=== PATIENT | female | born 1930 | race Caucasian/White ===

== ENCOUNTER 2016-09-29 14:00 | Inpatient (IN) ==
--- NOTE | 2016-09-29 15:46 | EKG Report ---
Stationary ECG Study [facility] Test Date: 09/29/2016 3:46:05 PM Pat Name: BONNIE VILLAGRAN Department: Room: Gender: F Concrete Technician: : [id number] Requested by: David Ladd Order Number: [id number] Reading MD: JUDITH ZACARIAS Intervals Curtis Rate: 63 P: 30 ND: 208 QRS: -28 QRSD: 113 T: 6 QT: 413 QTc: 420 Interpretive Statements SINUS RHYTHM WITH VENTRICULAR PREMATURE COMPLEX BORDERLINE LEFT AXIS DEVIATION MODERATE INTRAVENTRICULAR CONDUCTION DELAY Electronically Signed On 10-01-16 21:38:09 CDT by JUDITH ZACARIAS [email or web address]
--- NOTE | 2016-09-29 15:52 | Ultrasound Report ---
Referring Physician: David Ladd Exam: US aorta Date: September 29, 2016 Reason: Back pain, syncope Comparison: None Technique: Grayscale and color flow images of the abdominal aorta were obtained. Ultrasound images were captured and stored. Findings: The abdominal aorta measures as follows: Proximal 1.6 x 1.2 cm, mid 1.4 x 1.1 cm and distal 1.7 x 1.3 cm. The right common iliac artery measures 1.2 x 0.8 cm, and the left common iliac artery measures 1.2 x 1.1 cm. There is scattered atherosclerotic change at the abdominal aorta and iliac arteries. Impression: The abdominal aorta is slightly ectatic but not aneurysmal. It measures up to 1.7 cm in diameter. PROCEDURE INTERPRETED AT [facility] DEPARTMENT OF RADIOLOGY Final Report Signed by: Dr. Jossue Nielsen
--- NOTE | 2016-09-29 15:58 | Emergency Department Note ---
IJhonny Brooke, am scribing for, and in the presence of, David Ladd Jr., MD 14:45. IJulee Marvin Jr., MD, personally performed the services described in this documentation, ascribed by Emerita Barry in my presence, and it is both accurate and complete [id number] . Arrival - Arrival ED Nursing Triage Note: PT REMEMBERS GETTING OUT OF SHOWER AND ATTEMPTING TO GET DRESSED AND GOT WEAK, PT THINKS SHE PASSED OUT, PT ONLY COMPLAINS OF NECK PAIN, TENDER OVER CSPINE, PT WAS NOT IMMOBILIZED UPON ARRIVAL, C-COLLAR PLACED ON PT UPON ASSESSMENT, MS INTACT BEFORE AND AFTER PLACEMENT Mode of Arrival: Stretcher Limitations: No Limitations Source: Patient, EMS, Old Records Reviewed (Previous records ordered), RN Notes Reviewed, Bystander (Friend) <David Ladd Jr. - Last Filed: 09/29/16 15:55> <Bradley Cooper - Last Filed: 09/29/16 17:36> - Arrival Chief Complaint: Syncope Time Seen by Provider: 09/29/16 14:37 - History of Present Illness HPI Narrative: Patient is a 86 year old female who presents to the ED following a syncopal episode that happened prior to arrival. Patient says she had just gotten out of the shower and was getting dressed when she passed out. Patient wears one of the medical call buttons and Friend states "when Patient didn't answer them, they called her." Friend says when she arrived at Patient's house, Patient was in the bathroom floor laying on her stomach with her head turned to the right. Patient is currently complaining of left ankle pain and neck pain but states the neck pain is chronic. She says she don't think she hit her head when she passed out. She has no other complaints. Patient has PMHx of CHF, chronic back pain, and has had four MIs. Her Executive Staff Assistant is Dr. Wilkinson and her Primary Care Provider is Dr. Celaya. (Emerita Barry) Patient is a 86 year old female who presents to the ED following a syncopal episode that happened prior to arrival. Patient says she had just gotten out of the shower and was getting dressed when she passed out. Patient wears one of the medical call buttons and Friend states "when Patient didn't answer them, they called her." Friend says when she arrived at Patient's house, Patient was in the bathroom floor laying on her stomach with her head turned to the right. Patient is currently complaining of left ankle pain and neck pain but states the neck pain is chronic. She says she don't think she hit her head when she passed out. She has no other complaints. Patient has PMHx of CHF, chronic back pain, and has had four MIs. Her Executive Staff Assistant is Dr. Wilkinson and her Primary Care Provider is Dr. Celaya. (David Ladd Jr.) Allergies/Adverse Reactions: Allergies Allergy/AdvReac Type Severity Reaction Status Date / Time SEE LIST Allergy RASH Uncoded 09/29/16 14:26 Home Medications: Home Medications Medication Instructions Recorded Confirmed Type Aspirin EC Tab 81 mg PO DAILY 09/29/16 09/29/16 History Biotin 1 mg PO DAILY 09/29/16 09/29/16 History Carvedilol [Carvedilol] 3.125 mg PO BID 09/29/16 09/29/16 History Cyanocobalamin (Vitamin B-12) 1,000 mcg PO DAILY 09/29/16 09/29/16 History [Vitamin B-12] Furosemide [Furosemide] 40 mg PO DAILY 09/29/16 09/29/16 History Gabapentin [Gabapentin] 100 mg PO BID 09/29/16 09/29/16 History Isosorbide Dinitrate [Isosorbide 10 mg PO BID 09/29/16 09/29/16 History Dinitrate] Levothyroxine Sodium 75 mcg PO DAILY 09/29/16 09/29/16 History [Levothyroxine Sodium] Nitroglycerin Sl Tab [Nitrostat] 0.4 mg SL Q5M PRN 09/29/16 09/29/16 History [place] 3 Acid Ethyl Esters [Lovaza] 2 gm PO BID 09/29/16 09/29/16 History Omeprazole [Omeprazole] 20 mg PO BID 09/29/16 09/29/16 History Potassium Chloride [Potassium 20 meq PO TID 09/29/16 09/29/16 History Chloride] Propylene Glycol/Peg 400 [Systane 1 drop BOTH EYES DAILY 09/29/16 09/29/16 History Ultra] Saxagliptin HCl [Onglyza] 5 mg PO DAILY 09/29/16 09/29/16 History Travoprost 0.004% Oph Soln 1 drop BOTH EYES DAILY 09/29/16 09/29/16 History [Travatan Z] Review of System - Review of System 12 point system: reviewed and no additional remarkable complaints except as stated - Review of System Constitutional: Absent: fever Respiratory: Absent: respiratory distress Cardiovascular: Present: syncope Musculoskeletal: Present: neck pain (chronic), other (left ankle pain) Skin: Absent: rash <David Ladd Jr. - Last Filed: 09/29/16 15:55> Medical,Surgical,& Family Hx - Medical History Cardio: History of: CHF, [place] (X 5), Cardiovascular Problems Musculoskeletal: History of: Back/Neck Problems (CHRONIC LOWER BACK PAIN) - Surgical History Cardiac Surgeries: Sugical HX of: Cardiac Catheterization (ONE STENT) - Family History Family History: Denies;: Family Anesthesia Reaction - Social History Smoking Status: Unknown if ever smoked <David Ladd Jr. - Last Filed: 09/29/16 15:55> Exam <David Ladd Jr. - Last Filed: 09/29/16 15:55> <Bradley Cooper - Last Filed: 09/29/16 17:36> Physical Examination: General: Well-developed well-nourished, no apparent distress. Head: Normocephalic, atraumatic. Eyes: PERRLA, EOMI. Nose: No obvious acute deformities or discharge. Mouth: No obvious acute injury. Neck: Full range of motion without obvious pain. No midline tender to palpation. Patient says she has chronic neck pain and is not change. I removed the c-collar. Patient is not midline tender to palpation Lymphatic: no significant lymphadenopathy noted. Lungs: Clear to auscultation bilaterally, normal and equal air movement bilaterally, no obvious rales or wheezing. Heart: regular rate and rhythm, no obvious mummers. Abdomen: Soft nontender, nondistended, normal active bowel sounds. Skin: No obivous acute lesions noted Musculoskeletal: Left ankle is swollen but not bruised. Patient says it hurts to move it. She says she has had a previous fracture and it is always swollen but may be a little larger. Sensation normal and foot, Refill normal, Neurological: No focal findings, cranial nerves II through XII grossly normal. Psychiatric: Appropriate mood.. : Deferred (David Ladd Jr.) Vital Signs: Vital Signs Temperature 97.1 F L 09/29/16 14:05 Pulse Rate 60 09/29/16 14:05 Respiratory Rate 16 09/29/16 14:05 Blood Pressure 139/68 09/29/16 14:05 O2 Sat by Pulse Oximetry 99 09/29/16 14:05 Course - Reevaluation(s) Time: 15:57 <David Ladd Jr. - Last Filed: 09/29/16 15:55> - Reevaluation(s) Time: 17:35 <Bradley Cooper - Last Filed: 09/29/16 17:36> Course Narrative: Differential diagnosis: Ankle sprain versus fracture, syncopal episode, ACS, head injury, arrhythmia (David Ladd Jr.) - Reevaluation(s) Reevaluation #1: Workup in progress. Patient turned over to Dr. Cooper for completion of workup and care. (David Ladd Jr.) Reevaluation #2: Because of patient's syncope is still unclear. She will need admission and observation for that, but she also has a left ankle fracture. I do not think this will require any surgery but she lives alone and is unable to get around by herself. She will probably need admission to rehab at some point. I discussed patient with the hospitalist service who will see her and admit. ( Bradley Cooper) Results <David Ladd Jr. - Last Filed: 09/29/16 15:55> - Labs CBC & BMP: 09/29/16 15:50 09/29/16 15:50 Lab Results: I have reviewed the patients labs <Bradley Cooper - Last Filed: 09/29/16 17:36> - Labs Labs: Laboratory Tests 09/29/16 09/29/16 09/29/16 15:26 15:50 15:50 D-Dimer, Quantitative 7.7 Total Bilirubin 0.50 AST 30 ALT 33 Alkaline Phosphatase 73 Troponin I < 0.015 Urine Leukocytes Negative (Bradley Cooper) - Impressions EKG shows a normal sinus rhythm at 63 with a borderline left axis deviation and a PVC. Ankle x-ray shows an oblique fracture of the left fibula, mildly displaced. There is also an avulsion fracture of the medial malleolus. Ultrasound of the aorta shows no evidence of aneurysm. CT of the head shows no acute intracranial abnormality. CT of the cervical spine shows no acute fracture. (Bradley Cooper) Disposition <David Ladd Jr. - Last Filed: 09/29/16 15:55> Case discussed with: patient, patient's family Time of Disposition: 17:32 <Bradley Cooper - Last Filed: 09/29/16 17:36> Clinical Impression: Syncope, Left fibular fracture, Fracture of medial malleolus, left, closed Disposition: Still a Patient Condition: Stable
[2016-09-29 16:06] LABS: Basophils % 0.3 % (0.0-0.8); Eosinophils # 0.2 10*3/uL (0.0-0.87); Hematocrit 38.7 VOL% (35.7-47.0); Hemoglobin 13.3 GM/DL (12.0-16.0); Immature Granulocytes % 1.1 %; Lymphocytes % 11.4 % (21.3-54.2); Mean Corpuscular HGB Conc 34.4 GM/DL (32-36); Mean Corpuscular Hemoglobin 29 PG (27-34); Mean Corpuscular Volume 83.6 FL (87-102); Mean Platelet Volume 11.1 FL (9.6-12.0); Monocytes # 0.7 10*3/uL (0.11-0.8); Monocytes % 7.4 % (1.7-12.7); Neutrophils # 7.1 10*3/uL (1.4-7.4); Neutrophils % 77.8 % (38.7-73.9); Platelet Count 85 T/CUMM (130-400); Red Blood Count 4.63 MC/CUMM (3.8-5.5); White Blood Count 9.1 T/CUMM (4-12)
[2016-09-29 16:26] LABS: Alanine Aminotransferase 33 U/L (13-56); Albumin 3.4 G/DL (3.4-5.0); Alkaline Phosphatase 73 U/L (45-117); Aspartate Amino Transferase 30 U/L (0-37); Blood Urea Nitrogen 15 MG/DL (7-18); Calcium 8.6 MG/DL (8.5-10.1); Glucose 190 MG/DL (74-106); Osmolality,Calculated 284.4 MOS/KG (273-304); Potassium 4.5 MMOL/L (3.5-5.1); Sodium 140 MMOL/L (136-145); Total Protein 6.8 G/DL (6.4-8.3); Troponin I Only < 0.015 NG/ML (0.00-0.045)
[2016-09-29 16:29] LABS: Platelet Estimate Decreased
--- NOTE | 2016-09-29 16:43 | CT Report ---
Exam: CT cervical spine without contrast Date: September 29, 2016 Comparison: CT cervical spine April 29, 2014 Reason: Trauma, cervical spine pain, syncopal episode, status post fall, initial encounter Technique: Axial images of the cervical spine were obtained without the use of contrast. Sagittal and coronal reformatted images were also acquired. Total DLP is 355.0 mGy*cm. Findings: The cervical vertebral bodies are normal in height, and sagittal alignment is within normal limits. There is moderate disc space narrowing, endplate degenerative change and anterior marginal spurring at C3-C4 through C7-T1. There is also mild disc space narrowing at C2-C3 and T1-T2. Moderate degenerative change is noted at the atlantoaxial joint. No acute cervical spine fracture is identified. At C2-C3, there is a mild diffuse posterior disc osteophyte complex and moderate right facet arthropathy. No spinal canal stenosis or neuroforaminal narrowing is seen. At C3-C4, there is a left paracentral disc protrusion and minimal bilateral facet arthropathy. No significant spinal canal stenosis or neuroforaminal narrowing is seen. At C4-C5, there is a mild diffuse posterior disc osteophyte complex, mild right facet arthropathy and uncovertebral hypertrophy. No significant spinal canal stenosis is seen, but there is moderate left neuroforaminal narrowing and minimal right neuroforaminal narrowing. At C5-C6, there is a diffuse posterior disc osteophyte complex, uncovertebral hypertrophy and moderate right facet arthropathy. No spinal canal stenosis is seen, but there is minimal left neuroforaminal narrowing and severe right neuroforaminal narrowing. At C6-C7, there is a mild diffuse posterior disc osteophyte complex and uncovertebral hypertrophy. No spinal canal stenosis is seen, but there is mild bilateral neuroforaminal narrowing. At C7-T1, no neuroforaminal narrowing or spinal canal stenosis is identified. The lung apices are clear. No abnormal prevertebral soft tissue swelling is seen. Scattered calcified plaque is noted at the carotid arteries. There is also mild fluid within the right mastoid air cells. Impression: 1. No acute fracture is identified at the cervical spine. 2. Multilevel degenerative change at the cervical spine as described above. PROCEDURE INTERPRETED AT [facility] DEPARTMENT OF RADIOLOGY Final Report Signed by: Dr. Jossue Nielsen
--- NOTE | 2016-09-29 16:46 | CT Report ---
Referring physician: Bradley Cooper Exam: CT brain without contrast Date: September 29, 2016 Comparison: None Reason: Syncopal episode, status post fall The patient is an Emergency Department patient on September 29, 2016. Technique: Axial images of the head were obtained without the use of contrast. Total DLP was 1053.4 mGy*cm. Findings: There is mild to moderate generalized cerebral atrophy/volume loss and probable chronic microvascular ischemic change. No hydrocephalus or midline shift is present. There is no evidence of recent intracranial hemorrhage, abnormal mass effect or an acute infarction. No acute osseous process is seen. There is mild fluid within the right mastoid air cells. The left mastoid air cells are clear. Mild mucosal thickening is seen within the right sphenoid sinus. Prominent calcified plaque is noted at the intracranial internal carotid arteries. Impression: 1. No acute intracranial process is identified. 2. Mild to moderate generalized cerebral atrophy/volume loss and probable chronic macrovascular ischemic change. 3. Persistent mild fluid within the right mastoid air cells and mild right sphenoid sinus disease. The CT exam was performed using one or more of the following dose reduction techniques: Automated exposure control and adjustment of the mA and/or kV according to patient size. PROCEDURE INTERPRETED AT [facility] DEPARTMENT OF RADIOLOGY Final Report Signed by: Dr. Jossue Nielsen
--- NOTE | 2016-09-29 16:49 | XRay Report ---
Referring Physician: David Ladd Exam: XR ankle 3V LT Date: September 29, 2016 at 4:19 PM Reason: Left ankle trauma, left ankle pain, initial encounter Comparison: None Findings: There is a mildly displaced, oblique fracture of the distal left fibula. There is also a small avulsion type fracture at the medial malleolus and slight widening of the medial aspect of the tibiotalar joint. No additional acute fractures are identified, but note is made of mild calcaneal spurring. There is also prominent soft tissue swelling at the left ankle. Impression: 1. Mildly displaced, oblique fracture of the distal left fibula. 2. Small avulsion type fracture at the medial malleolus and slight widening of the medial aspect of the tibiotalar joint. 3. Prominent soft tissue swelling at the left ankle. PROCEDURE INTERPRETED AT [facility] DEPARTMENT OF RADIOLOGY Final Report Signed by: Dr. Jossue Nielsen
[2016-09-29 16:50] LABS: Apearance,Urine CLEAR (Clear); Bilirubin,Urine Negative (Negative); Blood, Urine Negative (Negative); Glucose,Urine (UA) Negative (Negative); Ketones,Urine Negative (Negative); Nitrite,Urine Negative (Negative); Protein,Urine Negative; Urine Color Straw (Yellow); Urine Specific Gravity 1.004 (1.001-1.035); Urine Urobilinogen < 2.0 EU/DL (0.2-1.0)
--- NOTE | 2016-09-29 18:34 | Hospitalist History & Physical ---
Assessment and Plan (1) Left fibular fracture Status: Acute Assessment and plan: Admit to monitored bed. Bed rest. Consult ortho. Current Visit: Yes (2) Syncope Status: Acute Assessment and plan: Admit to monitored bed. Neuro checks. Vs monitoring. Bedrest. Consult cardiology for recs. Unable to evaluate orthostatic vitals d/t patient's fracture. Continue to monitor. IVF hydration. Current Visit: Yes (3) Diabetes Status: Acute Assessment and plan: Accuchecks hosseins. SSI. Diabetic diet. Hemoglobin A1c in am. Current Visit: Yes (4) History of myocardial infarction Status: Chronic Current Visit: Yes History of Present Illness Chief complaint: syncope History of present illness: Ms. Soto is a 86 year old white female with a history of htn, dm, chf, mi with stents, and hypothyroidism that presented to the ED via EMS after having a syncopal episode at home earlier this morning. The patient states that she felt fine but after getting out of the shower and drying off, she felt dizzy at which point she fell. She states losing consciousness briefly and activating her life alert bracelet once she came to. EMS was called and when the completion manager on the scene arrived, she was nauseated, vomited and experienced an episode of diarrhea. On arrival to ED patient was found to have fractured her left ankle. The patient denies any chest pain, shortness of breath, vision loss, tinnutits or any other symptoms at this time. Patient will be admitted for further eval. Cardiology and ortho have been consulted to assist with patient's care. Home Medications Medication Instructions Recorded Confirmed Type Aspirin EC Tab 81 mg PO DAILY 09/29/16 09/29/16 History Biotin 1 mg PO DAILY 09/29/16 09/29/16 History Carvedilol [Carvedilol] 3.125 mg PO BID 09/29/16 09/29/16 History Cyanocobalamin (Vitamin B-12) 1,000 mcg PO DAILY 09/29/16 09/29/16 History [Vitamin B-12] Furosemide [Furosemide] 40 mg PO DAILY 09/29/16 09/29/16 History Gabapentin [Gabapentin] 100 mg PO BID 09/29/16 09/29/16 History Isosorbide Dinitrate [Isosorbide 10 mg PO BID 09/29/16 09/29/16 History Dinitrate] Levothyroxine Sodium 75 mcg PO DAILY 09/29/16 09/29/16 History [Levothyroxine Sodium] Nitroglycerin Sl Tab [Nitrostat] 0.4 mg SL Q5M PRN 09/29/16 09/29/16 History [place] 3 Acid Ethyl Esters [Lovaza] 2 gm PO BID 09/29/16 09/29/16 History Omeprazole [Omeprazole] 20 mg PO BID 09/29/16 09/29/16 History Potassium Chloride [Potassium 20 meq PO TID 09/29/16 09/29/16 History Chloride] Propylene Glycol/Peg 400 [Systane 1 drop BOTH EYES DAILY 09/29/16 09/29/16 History Ultra] Saxagliptin HCl [Onglyza] 5 mg PO DAILY 09/29/16 09/29/16 History Travoprost 0.004% Oph Soln 1 drop BOTH EYES DAILY 09/29/16 09/29/16 History [Travatan Z] Allergies Allergy/AdvReac Type Severity Reaction Status Date / Time SEE LIST Allergy RASH Uncoded 09/29/16 14:26 Medical,Surgical,& Family Hx - Medical History Cardio: History of: CHF, [place] (X 5), Cardiovascular Problems Musculoskeletal: History of: Back/Neck Problems (CHRONIC LOWER BACK PAIN) - Surgical History Cardiac Surgeries: Sugical HX of: Cardiac Catheterization (ONE STENT) - Family History Family History: Denies;: Family Anesthesia Reaction - Social History Smoking Status: Unknown if ever smoked Lives With:: Alone Functional capacity: independent ambulation - Constitutional Constitutional: Absent: fatigue, fever(s) - EENT Eyes: Present: loss of vision, requires corrective lense Ears: Present: decreased hearing. Absent: ear discharge Nose, mouth and throat: Absent: headache(s), sore throat - Cardiovascular Cardiovascular: Present: edema. Absent: chest pain at rest, chest pain with activity - Respiratory Respiratory: Present: other (wears O2 at night). Absent: cough, dyspnea - Gastrointestinal Gastrointestinal: Present: diarrhea, nausea, vomiting. Absent: abdominal pain - Genitourinary Genitourinary: Absent: difficulty urinating, urinary incontinence - Musculoskeletal Musculoskeletal: Present: limited range of motion - Neurological Neurological: Absent: confusion, numbness - Psychiatric Psychiatric: Absent: anxiety, confusion - Endocrine Endocrine: Present: heat intolerance Exam - Constitutional Vitals: Period Temp Pulse Resp BP Sys/Guajardo Pulse Ox Last 24 Hr 97.1 F 60 16 139/68 99 General appearance: normal weight, over weight - Head Head exam: Present: normal inspection, normocephalic - Eye Eye exam: Present: EOMI. Absent: scleral icterus Pupils: Present: EDWARD. Absent: fixed - ENT ENT exam: Present: normal exam - Respiratory Respiratory exam: Present: clear to auscultation bilaterally. Absent: wheezes - Cardiovascular Cardiovascular exam: Present: regular rate and rhythm - GI/Abdominal GI/Abdominal exam: Present: normal bowel sounds, soft. Absent: tenderness - Extremities Exam Extremities exam: Present: normal capillary refill, full ROM, edema - Neurological Exam Neurological exam: Present: alert, oriented X3 - Psychiatric Psychiatric exam: Present: normal affect, normal mood - Skin Skin exam: Present: normal color, warm, dry Results - Labs CBC & BMP: 09/29/16 15:50 09/29/16 15:50 Lab Results: I have reviewed the past 24 hour labs
[2016-09-29] MEDS ORDERED: ONDANSETRON 4 MG/2 ML VIAL IV PRN (19:45)
[2016-09-29] MEDS ORDERED: GLUCAGON 1 MG VIAL IM PRN (19:45)
[2016-09-29] MEDS ORDERED: ZALEPLON 5 MG CAPSULE PO PRN (19:45)
[2016-09-29] MEDS ORDERED: DEXTROSE 50% 25 GM/50 ML VIAL IV PRN (19:45)
[2016-09-29] MEDS ORDERED: ACETAMINOPHEN 325 MG TABLET PO PRN (19:45)
[2016-09-29] MEDS: SODIUM CHLORIDE 0.9% 1,000 ML IV SCH (21:44)
[2016-09-29 22:37] LABS: Barbiturates Screen,Urine Negative (Negative); Benzodiazepines Screen,Urine Negative (Negative); Cannabinoid Screen,Urine Negative (Negative); Opiate Screen,Urine Negative (Negative); Phencyclidine Screen,Urine Negative (Negative)
[2016-09-30] MEDS: INSULIN LISPRO 100 UNIT/ML SUBCUT SCH ×4 (01:17→18:46)
[2016-09-30 05:17] LABS: Basophils % 0.2 % (0.0-0.8); Eosinophils # 0.1 10*3/uL (0.0-0.87); Hematocrit 37.1 VOL% (35.7-47.0); Hemoglobin 12.5 GM/DL (12.0-16.0); Immature Granulocytes % 0.7 %; Immature Granulocytes Absolute 0.08 #; Lymphocytes # 1.3 10*3/uL (1.4-4.0); Mean Corpuscular HGB Conc 33.7 GM/DL (32-36); Mean Corpuscular Hemoglobin 29 PG (27-34); Mean Corpuscular Volume 85.7 FL (87-102); Mean Platelet Volume 11.6 FL (9.6-12.0); Monocytes # 1.3 10*3/uL (0.11-0.8); Neutrophils % 74.1 % (38.7-73.9); Platelet Count 73 T/CUMM (130-400); Red Blood Count 4.33 MC/CUMM (3.8-5.5); White Blood Count 10.8 T/CUMM (4-12)
[2016-09-30 06:03] LABS: Calcium 8.4 MG/DL (8.5-10.1); Osmolality,Calculated 289.5 MOS/KG (273-304); Potassium 3.9 MMOL/L (3.5-5.1); Thyroid Stimulating Hormone 0.677 uIU/ml (0.358-3.74)
[2016-09-30 06:07] LABS: Microcytosis 1+; Platelet Estimate Decreased
--- NOTE | 2016-09-30 08:57 | Cardiology Consult Note ---
Assessment and Plan (1) Cardiomyopathy Status: Acute Assessment and plan: 1. 86-year-old WF with controlled hypertension, diabetes, untreated dyslipidemia (reported allergy to Lipitor?), Status post non-STEMI with severe cardiomyopathy in 2008 (3 vessel disease with angioplasty of ramus branch), with improved ischemic cardiomyopathy and EF 40% with inferoapical scarring April 2014 at myocardial scan, now status post ankle fracture needing surgical intervention with possible syncope 2. Possible syncope she does not recall the event, but she has no previous presyncope or syncope, and has been doing well clinically from a cardiac standpoint able to ambulate without difficulty. 3. Add Crestor 20 mg daily given her three-vessel disease with medical therapy 4. Add low-dose Toprol 25 mg daily to treat her cardiomyopathy and avoid hypotension 5. Baby aspirin daily 6. Very low-dose ARB with valsartan 40 mg daily 7. Echocardiogram to evaluate for structural heart disease/reevaluate ejection fraction prior to surgery 8. She is euvolemic on examination 9. Check flat and upright blood pressure heart rates 4 10. If her ejection fraction is not deteriorated and she has no new structural heart disease she should be low to intermediate risk for perioperative cardiovascular complications Current Visit: Yes (2) Pre-op evaluation Status: Acute Current Visit: Yes (3) Syncope Status: Acute Current Visit: Yes History of Present Illness - Consult Narrative History of present illness: Ms. Soto is a 86 year old female followed by Dr. rodriguez for mild ischemic cardiomyopathy who presented with left ankle fracture after waking up in her bathroom with ankle pain. She does not recall what happened. She has had occasional mild dizziness but nothing serious and no previous episodes of presyncope or syncope. She apparently needs surgical intervention, tentatively planned for tomorrow. I did a heart catheterization 2008 which she had non- STEMI in procedure on her ramus branch. She had three-vessel disease at that time but did not undergo surgery. She had severely reduced LV systolic function at that time but then improved to moderately reduced and most recently EF 40% April 2014 with inferoapical scar. She has not had any chest discomfort or shortness of breath. She is not describing palpitations or swelling. She is asymptomatic other than her significant ankle pain. CC: Jhonny Howard MD - Home Medications and Allergies Home Medications: Home Medications Medication Instructions Recorded Confirmed Type Aspirin EC Tab 81 mg PO DAILY 09/29/16 09/29/16 History Biotin 1 mg PO DAILY 09/29/16 09/29/16 History Carvedilol [Carvedilol] 3.125 mg PO BID 09/29/16 09/29/16 History Cyanocobalamin (Vitamin B-12) 1,000 mcg PO DAILY 09/29/16 09/29/16 History [Vitamin B-12] Furosemide [Furosemide] 40 mg PO DAILY 09/29/16 09/29/16 History Gabapentin [Gabapentin] 100 mg PO BID 09/29/16 09/29/16 History Isosorbide Dinitrate [Isosorbide 10 mg PO BID 09/29/16 09/29/16 History Dinitrate] Levothyroxine Sodium 75 mcg PO DAILY 09/29/16 09/29/16 History [Levothyroxine Sodium] Nitroglycerin Sl Tab [Nitrostat] 0.4 mg SL Q5M PRN 09/29/16 09/29/16 History [place] 3 Acid Ethyl Esters [Lovaza] 2 gm PO BID 09/29/16 09/29/16 History Omeprazole [Omeprazole] 20 mg PO BID 09/29/16 09/29/16 History Potassium Chloride [Potassium 20 meq PO TID 09/29/16 09/29/16 History Chloride] Propylene Glycol/Peg 400 [Systane 1 drop BOTH EYES DAILY 09/29/16 09/29/16 History Ultra] Saxagliptin HCl [Onglyza] 5 mg PO DAILY 09/29/16 09/29/16 History Travoprost 0.004% Oph Soln 1 drop BOTH EYES DAILY 09/29/16 09/29/16 History [Travatan Z] Allergies/Adverse Reactions: Allergies Allergy/AdvReac Type Severity Reaction Status Date / Time SEE LIST Allergy RASH Uncoded 09/29/16 14:26 Medical,Surgical,& Family Hx - Medical History Cardio: History of: CHF, [place] (X 5), Cardiovascular Problems Endocrine: History of: Diabetes Mellitus (NIDDM) Rheumatology: History of;: Rheumatoid Arthritis Musculoskeletal: History of: Back/Neck Problems (CHRONIC LOWER BACK PAIN) - Surgical History Cardiac Surgeries: Sugical HX of: Cardiac Catheterization (ONE STENT) Abdominal Surgeries: Patient denies: Abdominal Surgery Reproductive Surgeries: Patient denies;: Gynecologic Surgery - Family History Family History: Reports;: Family Heart Disease Denies;: Family Anesthesia Reaction - Social History Smoking Status: Unknown if ever smoked Physical Examination Vital Signs Temp Pulse Resp BP Pulse Ox 97.1 F L 60 16 139/68 99 09/29/16 14:05 09/29/16 14:05 09/29/16 14:05 09/29/16 14:05 09/29/16 14:05 General: Present: Appears Well, No Apparent Distress Neck: Present: Supple Neck, No JVD/HJR Cardiac: Present: Reg Rate and Rhythm. Absent: Systolic Murmur, Diastolic Murmur Lungs: Present: Normal Exam, Clear Ascult./Percussion Abdomen: Present: Soft. Absent: Tender Extremities: Present: No Edema Result/EKG - Labs CBC & BMP: 09/30/16 03:48 09/30/16 03:48 Labs: Laboratory Results - last 24 hr 09/29/16 09/30/16 09/30/16 21:59 03:48 03:48 WBC 10.8 RBC 4.33 Hgb 12.5 Hct 37.1 MCV 85.7 L MCH 29 MCHC 33.7 RDW 13.0 Plt Count 73 L MPV 11.6 Neut % (Auto) 74.1 H Lymph % (Auto) 12.0 L [place] % (Auto) 12.0 Eos % (Auto) 1.0 Baso % (Auto) 0.2 Neut # (Auto) 8.0 H Lymph # (Auto) 1.3 L [place] # (Auto) 1.3 H Eos # (Auto) 0.1 Baso # (Auto) 0.0 Immature Gran % 0.7 Nucleated RBC % 0.0 Immature Gran # 0.08 Nucleated RBCs # 0.00 Platelet Estimate Decreased Microcytosis 1+ Sodium 139 Potassium 3.9 Chloride 100 Carbon Dioxide 26 Anion Gap 16.9 H BUN 21 H Creatinine 1.30 H GFR Calculation 40 BUN/Creatinine Ratio 16.00 Glucose 282 H POC Glucose 153 H Hemoglobin A1c Calculated Osmolality 289.5 Calcium 8.4 L Triglycerides 210 H Cholesterol 231 H LDL Cholesterol 159.0 VLDL Cholesterol 42.0 HDL Cholesterol 33 L Heart Disease Risk Ratio 7.00 TSH 3rd Generation 0.677 09/30/16 09/30/16 03:48 08:05 WBC RBC Hgb Hct MCV MCH MCHC RDW Plt Count MPV Neut % (Auto) Lymph % (Auto) [place] % (Auto) Eos % (Auto) Baso % (Auto) Neut # (Auto) Lymph # (Auto) [place] # (Auto) Eos # (Auto) Baso # (Auto) Immature Gran % Nucleated RBC % Immature Gran # Nucleated RBCs # Platelet Estimate Microcytosis Sodium Potassium Chloride Carbon Dioxide Anion Gap BUN Creatinine GFR Calculation BUN/Creatinine Ratio Glucose POC Glucose 176 H Hemoglobin A1c 7.6 H Calculated Osmolality Calcium Triglycerides Cholesterol LDL Cholesterol VLDL Cholesterol HDL Cholesterol Heart Disease Risk Ratio TSH 3rd Generation
--- NOTE | 2016-09-30 09:21 | Orthopedic Consult Note ---
History of Present Illness Chief complaint: Left closed unstable bimalleolar ankle fracture History of present illness: Ms. Soto is a 86 year old female who sustained a syncopal episode yesterday. As a sequela she sustained a left bimalleolar ankle fracture. The patient has a history of a prior ankle fracture in the 1950s which was treated closed in a walking cast. She otherwise has not had significant problems with that ankle. She lives at home with her cats and is an independent ambulator. Ms. Soto' left lower extremity was examined. Skin is intact. She is mildly swollen. Skin, sensation, motors, and pulses are intact to her left lower extremity. She has a mild deformity. There is no tenting of the skin. Radiographs 3 views ankle show a spiral distal fibular fracture with a very small medial malleolus avulsion fracture. She has a widened mortise. Her CBC is pertinent for thrombocytopenia. Impression: Left closed bimalleolar ankle fracture Plan: I placed the patient in a short leg splint with stirrups. I have advised open reduction fixation of her fibula. We will plan on proceeding with this Friday. Risks and benefits were discussed. All questions are answered. I have also consulted physical therapy to start on gait training. Home Medications Medication Instructions Recorded Confirmed Type Aspirin EC Tab 81 mg PO DAILY 09/29/16 09/29/16 History Biotin 1 mg PO DAILY 09/29/16 09/29/16 History Carvedilol [Carvedilol] 3.125 mg PO BID 09/29/16 09/29/16 History Cyanocobalamin (Vitamin B-12) 1,000 mcg PO DAILY 09/29/16 09/29/16 History [Vitamin B-12] Furosemide [Furosemide] 40 mg PO DAILY 09/29/16 09/29/16 History Gabapentin [Gabapentin] 100 mg PO BID 09/29/16 09/29/16 History Isosorbide Dinitrate [Isosorbide 10 mg PO BID 09/29/16 09/29/16 History Dinitrate] Levothyroxine Sodium 75 mcg PO DAILY 09/29/16 09/29/16 History [Levothyroxine Sodium] Nitroglycerin Sl Tab [Nitrostat] 0.4 mg SL Q5M PRN 09/29/16 09/29/16 History [place] 3 Acid Ethyl Esters [Lovaza] 2 gm PO BID 09/29/16 09/29/16 History Omeprazole [Omeprazole] 20 mg PO BID 09/29/16 09/29/16 History Potassium Chloride [Potassium 20 meq PO TID 09/29/16 09/29/16 History Chloride] Propylene Glycol/Peg 400 [Systane 1 drop BOTH EYES DAILY 09/29/16 09/29/16 History Ultra] Saxagliptin HCl [Onglyza] 5 mg PO DAILY 09/29/16 09/29/16 History Travoprost 0.004% Oph Soln 1 drop BOTH EYES DAILY 09/29/16 09/29/16 History [Travatan Z] Allergies Allergy/AdvReac Type Severity Reaction Status Date / Time SEE LIST Allergy RASH Uncoded 09/29/16 14:26 12 point system: reviewed and no additional remarkable complaints except as stated Medical,Surgical,& Family Hx - Medical History Cardio: History of: CHF, [place] (X 5), Cardiovascular Problems Endocrine: History of: Diabetes Mellitus (NIDDM) Rheumatology: History of;: Rheumatoid Arthritis Musculoskeletal: History of: Back/Neck Problems (CHRONIC LOWER BACK PAIN) - Surgical History Cardiac Surgeries: Sugical HX of: Cardiac Catheterization (ONE STENT) Abdominal Surgeries: Patient denies: Abdominal Surgery Reproductive Surgeries: Patient denies;: Gynecologic Surgery - Family History Family History: Reports;: Family Heart Disease Denies;: Family Anesthesia Reaction - Social History Smoking Status: Unknown if ever smoked Exam - Constitutional Vitals: Period Temp Pulse Resp BP Sys/Guajardo Pulse Ox Last 24 Hr 97.1 F-98.0 F 58-90 16-20 115-139/56-68 94-99 Results - Labs CBC & BMP: 09/30/16 03:48 09/30/16 03:48 Assessment and Plan (1) Bimalleolar fracture of left ankle Status: Acute Current Visit: Yes Qualifiers: Encounter type: initial encounter Fracture type: closed Qualified Code(s) : S82.842A - Displaced bimalleolar fracture of left lower leg, initial encounter for closed fracture
--- NOTE | 2016-09-30 10:15 | Hospitalist Progress Note ---
Assessment and Plan (1) Syncope Status: Acute Assessment and plan: Moderate to this point is not showing malignant arrhythmias. Patient has sinus control occasional APCs noted. Cardiology recommendations appreciated please refer to note for details. Current Visit: Yes (2) Diabetes Status: Acute Assessment and plan: Point of care glucose measurements below 200. Intention is to maintain it below 150. Continue with a current treatment and will be n.p.o. after midnight she will need to give too much insulin in the morning Current Visit: Yes Qualifiers: Diabetes mellitus type: type 2 Diabetes mellitus complication status: with circulatory complication Diabetes mellitus complication detail: with other circulatory complications Diabetes mellitus terminal operator insulin use: without terminal operator use Qualified Code(s): E11.59 - Type 2 diabetes mellitus with other circulatory complications (3) Cardiomyopathy Status: Acute Assessment and plan: Cardiology is on case patient is asymptomatic at this point no acute decompensated CHF Current Visit: Yes (4) Bimalleolar fracture of left ankle Status: Acute Current Visit: Yes Qualifiers: Encounter type: initial encounter Fracture type: closed Qualified Code(s) : S82.842A - Displaced bimalleolar fracture of left lower leg, initial encounter for closed fracture Hospitalist: Subjective Interval history: She has been seen interviewed and examined chart has been reviewed. Reportedly she had a syncopal episode at home fell down and broke her left ankle. Patient is known to have coronary disease. Cardiology has already seen the patient and think she is stable on current medications. Orthopedics is planning to do open reduction internal fixation tomorrow. No acute complaints this morning Exam - Constitutional Vitals: Period Temp Pulse Resp BP Sys/Guajardo Pulse Ox Last 24 Hr 97.1 F-98.0 F 58-90 16-20 115-139/56-68 94-99 General appearance: over weight - Head Head exam: Present: normocephalic - Eye Pupils: Present: EDWARD - ENT ENT exam: Present: normal exam, normal oropharynx - Neck Neck exam: Present: normal inspection, other (No JVD no lymphadenopathy no thyromegaly midline trachea) - Respiratory Respiratory exam: Present: clear to auscultation bilaterally, other - Cardiovascular Cardiovascular exam: Present: regular rate and rhythm, other (Occasional ectopy. EKG shows occasional PVCs with aberrant conduction) - GI/Abdominal GI/Abdominal exam: Present: normal bowel sounds, soft - Extremities Exam Extremities exam: Present: full ROM - Back Exam Back exam: Present: normal inspection - Neurological Exam Neurological exam: Present: alert, oriented X3, CN II-XII intact - Psychiatric Psychiatric exam: Present: normal affect, normal mood - Skin Skin exam: Present: normal color, warm, dry Results - Labs CBC & BMP: 09/30/16 03:48 09/30/16 03:48 Lab Results: I have reviewed the past 24 hour labs
--- NOTE | 2016-09-30 10:26 | Hospitalist Progress Note ---
Assessment and Plan (1) Syncope Status: Acute Assessment and plan: Moderate to this point is not showing malignant arrhythmias. Patient has sinus control occasional APCs noted. Cardiology recommendations appreciated please refer to note for details. Current Visit: Yes (2) Diabetes Status: Acute Assessment and plan: Point of care glucose measurements below 200. Intention is to maintain it below 150. Continue with a current treatment and will be n.p.o. after midnight she will need to give too much insulin in the morning Current Visit: Yes Qualifiers: Diabetes mellitus type: type 2 Diabetes mellitus complication status: with circulatory complication Diabetes mellitus complication detail: with other circulatory complications Diabetes mellitus terminologist insulin use: without terminologist use Qualified Code(s): E11.59 - Type 2 diabetes mellitus with other circulatory complications (3) Cardiomyopathy Status: Acute Assessment and plan: Cardiology is on case patient is asymptomatic at this point no acute decompensated CHF Current Visit: Yes (4) Bimalleolar fracture of left ankle Status: Acute Current Visit: Yes Qualifiers: Encounter type: initial encounter Fracture type: closed Qualified Code(s) : S82.842A - Displaced bimalleolar fracture of left lower leg, initial encounter for closed fracture Hospitalist: Subjective Interval history: Patient has been seen interviewed and examined and #to see him this morning after being admitted yesterday with symptoms and signs of acute cerebrovascular accident suggesting to be in the left middle cerebral artery watershed. And now has paresis of the right side and able to talk with a tendency to gaze to the right. 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 I am ordering a CTA of both head and neck. He does have pacemaker but he is already going to MRI. Reportedly it was created with MRI that he can have the procedure despite having a pacemaker. Exam - Constitutional Vitals: Period Temp Pulse Resp BP Sys/Guajardo Pulse Ox Last 24 Hr 97.1 F-98.0 F 58-90 16-20 115-139/56-68 94-99 Results - Labs CBC & BMP: 09/30/16 03:48 09/30/16 03:48
[2016-09-30] MEDS: VALSARTAN 80 MG TABLET PO SCH (10:27)
[2016-09-30] MEDS: ROSUVASTATIN 20 MG TABLET PO SCH (10:27)
[2016-09-30] MEDS: METOPROLOL SUCCINATE XL 25 MG TABLET PO SCH (10:30)
[2016-09-30] MEDS: ASPIRIN CHEW 81 MG TABLET PO SCH (10:31)
[2016-09-30] MEDS: PANTOPRAZOLE 40 MG TABLET PO SCH (10:31)
--- NOTE | 2016-09-30 15:33 | ECHO Report ---
Catia Soto Exam Date: 09/30/2016 10:59 Referring Physician: Technologist: Brittany Denton RDCS Age: 86 Ht (in): 64 Wt (lb): 178 Gender: F Exam Location: [facility] Echo Indications: Left ankle fracture, Pre Op, Syncope and collapse, NIDDM, CAD with previous stents, Essential (primary) hypertension, Edema, unspecified, Ischemic cardiomyopathy BP: 117 / 56 HR: 85 Rhythm: Sinus Technical Quality: IMPRESSIONS Technically difficult study 1-2+ left atrial enlargement 1+ concentric LVH Normal LV systolic function with ejection fraction estimated 55% without obvious wall motion value Aortic sclerosis without stenosis 1+ TR with RV systolic pressure estimated be 24 mmHg plus RAP MEASUREMENTS (Male / Female) Normal Values 2D ECHO LV Diastolic Diameter PLAX 5.3 cm 4.2 - 5.9 / 3.9 - 5.3 cm LV Systolic Diameter PLAX 3.3 cm LV Fractional Shortening PLAX 36.9 % IVS Diastolic Thickness 1.1 cm 0.6 - 1.0 / 0.6 - 0.9 cm LVPW Diastolic Thickness 1.1 cm 0.6 - 1.0 / 0.6 - 0.9 cm RV Internal Dim ED PLAX 2.5 cm Aortic Root Diameter 3.1 cm LA Systolic Diameter LX 4.3 cm 3.0 - 4.0 / 2.7 - 3.8 cm DOPPLER TR Peak Velocity 243.0 cm/s TR Peak Gradient 23.6 mmHg FINDINGS Left Ventricle Normal left ventricular cavity size. Mild left ventricular hypertrophy. Left ventricular ejection fraction is estimated at 55 %. Right Ventricle Normal right ventricular size. Catheter/pacemaker wire visualized in the right ventricle. Right Atrium The right atrium is mildly enlarged. Catheter/pacemaker wire in the right atrial cavity. Left Atrium The left atrium is mildly enlarged. Mitral Valve Morphologically normal mitral valve. Trace to mild mitral valve regurgitation. Aortic Valve Aortic valve sclerosis without stenosis or regurgitation. Tricuspid Valve Morphologically normal tricuspid valve. Trace to mild tricuspid valve regurgitation. Tricuspid regurgitation velocities suggest a PAP of 34 mmHg. Pulmonic Valve Morphologically normal pulmonic valve. Mild pulmonary valve regurgitation. Pericardium Normal pericardium without effusion. Aorta Normal ascending aorta dimension. José Antonio Galvan (Electronically Signed) Final Date: 30 Sep 2016 15:31
[2016-09-30] MEDS: SODIUM CHLORIDE 0.9% 1,000 ML IV SCH (16:32)
[2016-10-01] MEDS: INSULIN LISPRO 100 UNIT/ML SUBCUT SCH ×5 (00:37→21:16)
[2016-10-01 05:55] LABS: Basophils % 0.1 % (0.0-0.8); Eosinophils # 0.3 10*3/uL (0.0-0.87); Eosinophils % 3.6 % (0.00-10.9); Hematocrit 35.7 VOL% (35.7-47.0); Hemoglobin 11.8 GM/DL (12.0-16.0); Immature Granulocytes % 0.9 %; Immature Granulocytes Absolute 0.08 #; Lymphocytes # 1.4 10*3/uL (1.4-4.0); Lymphocytes % 15.5 % (21.3-54.2); Mean Corpuscular HGB Conc 33.1 GM/DL (32-36); Mean Corpuscular Hemoglobin 29 PG (27-34); Mean Corpuscular Volume 88.1 FL (87-102); Mean Platelet Volume 11.1 FL (9.6-12.0); Monocytes # 1.5 10*3/uL (0.11-0.8); Monocytes % 17.4 % (1.7-12.7); Neutrophils # 5.4 10*3/uL (1.4-7.4); Neutrophils % 62.5 % (38.7-73.9); Platelet Count 61 T/CUMM (130-400); Red Blood Count 4.05 MC/CUMM (3.8-5.5); White Blood Count 8.7 T/CUMM (4-12)
[2016-10-01] MEDS ORDERED: BACITRACIN OINT 0.9 GM PACK TOP ONE ×2 (06:23→08:36)
[2016-10-01 06:32] LABS: Magnesium 1.9 MG/DL (1.8-2.4)
[2016-10-01 06:35] LABS: Band Neutrophils 1 % (0-10); Eosinophils 2 % (0-10); Hypochromasia 1+; Lymphocytes 11 % (20-55); Segmented Neutrophils 71 % (50-85); Total Cells Counted 100
[2016-10-01 06:36] LABS: Microcytosis 1+; Platelet Estimate Decreased
--- NOTE | 2016-10-01 07:16 | Orthopedic Progress Note ---
Assessment and Plan (1) Bimalleolar fracture of left ankle Status: Acute Current Visit: Yes Qualifiers: Encounter type: initial encounter Fracture type: closed Qualified Code(s) : S82.842A - Displaced bimalleolar fracture of left lower leg, initial encounter for closed fracture Orthopedics - Subjective Interval history: Ms. Soto feels better with the splint on. No new complaints. Splint is clean, dry and intact. Left lower extremities neurovascularly unchanged. Plan: Proceed with open reduction fixation left fibula this morning. All questions were answered. Exam - Constitutional Vitals: Period Temp Pulse Resp BP Sys/Guajardo Pulse Ox Last 24 Hr 97.1 F-97.5 F 55-71 18-20 130-148/61-65 96-100 Results - Labs CBC & BMP: 10/01/16 04:33 10/01/16 04:33
[2016-10-01] MEDS ORDERED: ceFAZolin 2,000 MG in PREMIX 1 EACH IV ONE (07:30)
[2016-10-01] MEDS ORDERED: PROPOFOL 200 MG/20 ML VIAL IV ONE (08:38)
[2016-10-01] MEDS ORDERED: LIDOCAINE 100 MG/5 ML SYRINGE ONE (08:38)
[2016-10-01] MEDS ORDERED: MORPHINE 2 MG/1 ML SYRINGE IV PRN ×2 (09:40)
--- NOTE | 2016-10-01 09:40 | Operative Note ---
Date of procedure: 10/01/16 Procedure: DIAGNOSIS: Left bimalleolar fracture PROCEDURE: Left lateral malleolus open reduction and fixation (CPT #86861) with closed treatment medial malleolus avulsion fracture SURGEON: Donovan ANESTHESIA: General with postoperative popliteal block PROCEDURE and FINDINGS: After adequate anesthesia was induced, the limb was prepped and draped in the usual sterile fashion. Limb was exsanguinated with Esmarch. Tourniquet was inflated to 300 mmHg. A lateral approach to the distal fibula was made. Skin, subcutaneous tissue, and periosteum was incised longitudinally. Fracture was exposed and reduced. A 6-hole antiglide plate was applied posterior laterally. A lag screw was placed from anterior to posterior. Patient had a stable reduction. Wound was irrigated. Periosteum was approximated with 0 Vicryl [id number] sutures. Subcutaneous tissues were closed with 3-0 Vicryl interrupted, buried sutures. Skin was closed with trisha. Sterile dressing and short leg splint was applied. Tourniquet was released for an approximate time of 21 minutes. Intensification was used in multiple planes throughout the procedure. Surgeon / Physician: Josue Man Jr. Results - Labs CBC & BMP: 10/01/16 04:33 10/01/16 04:33 Discharge Plan - Discharge Medications No Action [place] 3 Acid Ethyl Esters [Lovaza] 2 gm PO BID Nitroglycerin Sl Tab [Nitrostat] 0.4 mg SL Q5M PRN PRN Reason: Chest Pain Travoprost 0.004% Oph Soln [Travatan Z] 1 drop BOTH EYES DAILY Propylene Glycol/Peg 400 [Systane Ultra] 1 drop BOTH EYES DAILY Potassium Chloride [Potassium Chloride] 20 meq PO TID Gabapentin [Gabapentin] 100 mg PO BID Furosemide [Furosemide] 40 mg PO DAILY Carvedilol [Carvedilol] 3.125 mg PO BID Biotin 1 mg PO DAILY Aspirin EC Tab 81 mg PO DAILY Saxagliptin HCl [Onglyza] 5 mg PO DAILY Omeprazole [Omeprazole] 20 mg PO BID Isosorbide Dinitrate [Isosorbide Dinitrate] 10 mg PO BID Cyanocobalamin (Vitamin B-12) [Vitamin B-12] 1,000 mcg PO DAILY Levothyroxine Sodium [Levothyroxine Sodium] 75 mcg PO DAILY - Follow Up or Referral - Forms/Instructions
--- NOTE | 2016-10-01 09:46 | XRay Report ---
XR ankle 3V LT Indication: ORIF left ankle Comparison: Left ankle x-ray dated September 29, 2016 Technique: Frontal, lateral, and oblique intraoperative fluoroscopic views of the left ankle. Fluoroscopy time 2 seconds. Findings: Interval plate and screw fixation of the distal fibula with improved anatomic alignment. Soft tissue swelling about the ankle noted as well as lateral superficial skin trisha. IMPRESSION: As above. PROCEDURE INTERPRETED AT [facility] DEPARTMENT OF RADIOLOGY Final Report Signed by: Dr Marcial Roberts
[2016-10-01] MEDS: HYDROmorphone 2 MG/1 ML VIAL IV PRN ×2 (09:50→09:55)
[2016-10-01] MEDS ORDERED: ONDANSETRON 4 MG/2 ML VIAL ONE (09:53)
[2016-10-01] MEDS ORDERED: HYDROmorphone 2 MG/1 ML VIAL ONE (09:53)
[2016-10-01] MEDS ORDERED: ROPIVACAINE 0.5% 30 ML VIAL ONE (09:54)
[2016-10-01] MEDS ORDERED: DESFLURANE 1 UNIT/15 MINUTE INH ONE (10:07)
[2016-10-01] MEDS ORDERED: MIDAZOLAM 2 MG/2 ML VIAL ONE (10:07)
[2016-10-01] MEDS ORDERED: fentaNYL 100 MCG/2 ML VIAL ONE (10:07)
[2016-10-01] MEDS ORDERED: ONDANSETRON 4 MG/2 ML VIAL IV PRN (10:25)
[2016-10-01] MEDS ORDERED: hydrALAZINE 20 MG/1 ML VIAL IV ONE (10:26)
[2016-10-01] MEDS ORDERED: LACTATED RINGERS 1,000 ML IV SCH (10:30)
--- NOTE | 2016-10-01 12:12 | Hospitalist Progress Note ---
Hospitalist: Subjective Interval history: Pt states pain is controlled. No cp or SOB. No Nausea or vomiting. No fever. Just returning from surgery. Exam - Constitutional Vitals: Period Temp Pulse Resp BP Sys/Guajardo Pulse Ox Last 24 Hr 97.1 F-98.1 F 55-84 16-20 125-172/61-113 96-100 Exam: A and O x 2, morbidly obese RRR no M CTAB nonlabored Soft, NT, ND, +BS Warm no c/c; +nonpitting edema of fingers; left ankle elevated and bandages/GAUTAM wrap in place Results - Labs CBC & BMP: 10/01/16 04:33 10/01/16 04:33 - Impressions (1) Syncope Status: Acute Assessment and plan: - possibly due to dehydration/ vasovagal etiologies - Cardiology input appreciated. 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 Adjust as needed Current Visit: Yes Qualifiers: Diabetes mellitus type: type 2 Diabetes mellitus complication status: with circulatory complication Diabetes mellitus complication detail: with other circulatory complications Diabetes mellitus vermin exterminator insulin use: without vermin exterminator use Qualified Code(s): E11.59 - Type 2 diabetes mellitus with other circulatory complications (3) History of chronic systolic CHF but EF is now improved/preserved /CAD s/p CABG Status: Acute Assessment and plan: Cardiology following. Cont medical management Current Visit: Yes (4) Bimalleolar fracture of left ankle s/p left lateral malleolus ORIF with closed treatment medial malleolus avulsion fracture 10/01 Status: Acute Current Visit: Yes Qualifiers: Encounter type: initial encounter Fracture type: closed Qualified Code(s) : S82.842A - Displaced bimalleolar fracture of left lower leg, initial encounter for closed fracture - Ortho following. Cont routine post-op care per ortho recs. Labs in am (5) Chronic thrombocytopenia- etiology unclear- worsening - Will follow. Not on heparin. Coags ok. If worsens, consult hematology. If signs of bleeding, transfuse. Recheck platelet count in blue top tube to r/o pseudothrombocytopenia DVT prophylaxis per ortho Quality Measures - VTE Contraindication to Pharmacological VTE Prophylaxis: Thrombocytopenia
[2016-10-01] MEDS: ASPIRIN CHEW 81 MG TABLET PO SCH (12:43)
[2016-10-01] MEDS: LACTATED RINGERS 1,000 ML IV SCH ×3 (12:58→22:42)
[2016-10-01] MEDS: VALSARTAN 80 MG TABLET PO SCH (14:45)
[2016-10-01] MEDS: PANTOPRAZOLE 40 MG TABLET PO SCH (14:45)
[2016-10-01] MEDS: ROSUVASTATIN 20 MG TABLET PO SCH (14:45)
[2016-10-01] MEDS: METOPROLOL SUCCINATE XL 25 MG TABLET PO SCH (14:46)
[2016-10-01] MEDS ORDERED: ceFAZolin 2,000 MG in PREMIX 1 EACH IV SCH (15:42)
--- NOTE | 2016-10-01 17:34 | Orthopedic Progress Note ---
Assessment and Plan (1) Bimalleolar fracture of left ankle Status: Acute Current Visit: Yes Qualifiers: Encounter type: initial encounter Fracture type: closed Qualified Code(s) : S82.842A - Displaced bimalleolar fracture of left lower leg, initial encounter for closed fracture Orthopedics - Subjective Interval history: Ms. Soto is comfortable. Her left lower extremity is elevated on the pillow. Her block is working. She only has weak flexion of her toes. Plan: Continue with postoperative orders. Exam - Constitutional Vitals: Period Temp Pulse Resp BP Sys/Guajardo Pulse Ox Last 24 Hr 96.1 F-98.1 F 55-84 16-20 125-172/61-113 96-100 Results - Labs CBC & BMP: 10/01/16 04:33 10/01/16 04:33 Quality Measures - VTE Contraindication to Pharmacological VTE Prophylaxis: Thrombocytopenia
--- NOTE | 2016-10-01 18:11 | Anesthesia Post-Op ---
Anesthesia Post OP - Post Ansesthetic Evaluation Patient seen in post op: Yes Resp: within normal limits CV: within normal limits Mental: within normal limits Temp: within normal limits Sdnr-[id number]: within normal limits Nausea and Vomiting: within normal limits Pain: within normal limits
[2016-10-01] MEDS: ceFAZolin 2,000 MG in SODIUM CHLORIDE 0.9% 100 ML IV SCH (18:33)
[2016-10-02] MEDS: ceFAZolin 2,000 MG in SODIUM CHLORIDE 0.9% 100 ML IV SCH (01:08)
[2016-10-02 04:48] LABS: Basophils % 0.2 % (0.0-0.8); Eosinophils # 0.2 10*3/uL (0.0-0.87); Eosinophils % 1.3 % (0.00-10.9); Hematocrit 35.2 VOL% (35.7-47.0); Hemoglobin 11.9 GM/DL (12.0-16.0); Immature Granulocytes % 1.2 %; Immature Granulocytes Absolute 0.15 #; Lymphocytes # 0.8 10*3/uL (1.4-4.0); Mean Corpuscular HGB Conc 33.8 GM/DL (32-36); Mean Corpuscular Hemoglobin 29 PG (27-34); Mean Corpuscular Volume 86.9 FL (87-102); Mean Platelet Volume 10.3 FL (9.6-12.0); Monocytes # 1.6 10*3/uL (0.11-0.8); Monocytes % 12.6 % (1.7-12.7); Neutrophils # 10.2 10*3/uL (1.4-7.4); Neutrophils % 78.7 % (38.7-73.9); Red Blood Count 4.05 MC/CUMM (3.8-5.5); Red Cell Distribution Width 12.8 % (9.3-17.3)
[2016-10-02 04:55] LABS: Platelet Count 88 T/CUMM (130-400)
[2016-10-02 05:12] LABS: Calcium 8.3 MG/DL (8.5-10.1); Osmolality,Calculated 284.1 MOS/KG (273-304); Potassium 3.9 MMOL/L (3.5-5.1)
[2016-10-02 05:42] LABS: Magnesium 1.8 MG/DL (1.8-2.4); Osmolality,Calculated 284.1 MOS/KG (273-304); Potassium 3.9 MMOL/L (3.5-5.1)
[2016-10-02 07:07] LABS: Platelet Estimate Decreased
--- NOTE | 2016-10-02 07:23 | Orthopedic Progress Note ---
Assessment and Plan (1) Bimalleolar fracture of left ankle Status: Acute Current Visit: Yes Qualifiers: Encounter type: initial encounter Fracture type: closed Qualified Code(s) : S82.842A - Displaced bimalleolar fracture of left lower leg, initial encounter for closed fracture Orthopedics - Subjective Interval history: Ms. Sandra brannon is still working. Her ankle is comfortable. Left lower extremity shows that her splint is clean, dry and intact. She has weak flexion but no extension. Sensation is still globally diminished to her forefoot. Capillary refill is less than 2 seconds and her toes are warm and pink. Plan: Mobilize with physical therapy. Stop IV fluids. Discharge planning. Exam - Constitutional Vitals: Period Temp Pulse Resp BP Sys/Guajardo Pulse Ox Last 24 Hr 96.1 F-98.4 F 58-92 16-20 125-172/58-113 95-100 Results - Labs CBC & BMP: 10/02/16 04:33 10/02/16 04:33 Quality Measures - VTE Contraindication to Pharmacological VTE Prophylaxis: Thrombocytopenia
[2016-10-02] MEDS: INSULIN LISPRO 100 UNIT/ML SUBCUT SCH ×4 (08:56→21:33)
[2016-10-02] MEDS: ASPIRIN CHEW 81 MG TABLET PO SCH (08:57)
[2016-10-02] MEDS: VALSARTAN 80 MG TABLET PO SCH (08:57)
[2016-10-02] MEDS: METOPROLOL SUCCINATE XL 25 MG TABLET PO SCH (08:57)
[2016-10-02] MEDS: PANTOPRAZOLE 40 MG TABLET PO SCH (08:57)
[2016-10-02] MEDS: ROSUVASTATIN 20 MG TABLET PO SCH ×2 (08:57→09:00)
[2016-10-02] MEDS: MAGNESIUM HYDROXIDE SUSP 30 ML UDCUP PO PRN (11:58)
--- NOTE | 2016-10-02 14:52 | Hospitalist Progress Note ---
Hospitalist: Subjective Interval history: Pt ate 25- 50% of meals so far today. No fever. No cp, SOB or palpitations or cough. No BM yet but feels it could happen later today. Had MOM earlier today. No abd pain. urinating without difficulty. Pt did participate with therapy today. She did not bear weight but was able to transfer and pivot. Exam - Constitutional Vitals: Period Temp Pulse Resp BP Sys/Guajardo Pulse Ox Last 24 Hr 96.5 F-98.6 F 61-92 16-20 112-160/45-88 93-98 Exam: A and O x 2, morbidly obese RRR no M CTAB nonlabored Soft, NT, ND, +BS Warm no c/c; +nonpitting edema of fingers; left ankle elevated and bandages/GAUTAM wrap in place Results - Labs CBC & BMP: 10/02/16 04:33 10/02/16 04:33 - Impressions (1) Syncope Status: Acute Assessment and plan: - possibly due to dehydration/ vasovagal etiologies - Cardiology input appreciated. 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 Adjust as needed Current Visit: Yes Qualifiers: Diabetes mellitus type: type 2 Diabetes mellitus complication status: with circulatory complication Diabetes mellitus complication detail: with other circulatory complications Diabetes mellitus alf insulin use: without exterminator helper termite use Qualified Code(s): E11.59 - Type 2 diabetes mellitus with other circulatory complications (3) History of chronic systolic CHF but EF is now improved/preserved /CAD s/p CABG Status: Acute Assessment and plan: Cardiology following. Cont medical management. Current Visit: Yes (4) Bimalleolar fracture of left ankle s/p left lateral malleolus ORIF with closed treatment medial malleolus avulsion fracture 10/01 Status: Acute Current Visit: Yes Qualifiers: Encounter type: initial encounter Fracture type: closed Qualified Code(s) : S82.842A - Displaced bimalleolar fracture of left lower leg, initial encounter for closed fracture - Ortho following. Cont routine post-op care per ortho recs. Labs in am (5) Chronic thrombocytopenia- etiology unclear- appears to be some component of pseudothrombocytopenia - Will follow. Not on heparin. Coags ok. back to baseline after CBC drawn in purple top tube. If signs of bleeding, transfuse. DVT prophylaxis per ortho D/W friend, pt, nurse and test case developer. Rehab at discharge. Recheck CBC in am. Cont therapy efforts. Quality Measures - VTE Contraindication to Pharmacological VTE Prophylaxis: Thrombocytopenia Specialty Discharge - Follow Up or Referrals Follow up with: Bentley Kulkarni MD [Physician] - 11/04/16 9:00 am (APPT WITH DR KULKARNI IS October AT 900AM FOR LAB AND TO SEE DR KULKARNI AT 920AM)
--- NOTE | 2016-10-02 16:20 | XRay Report ---
XR shoulder 2V LT Indication: Pain with history of falling injury Comparison: None available Findings: No evidence of fracture seen. The alignment of the joints appears normal. Moderate acromioclavicular joint degenerative change is present. No soft tissue abnormality is seen. Impression: No evidence of acute injury demonstrated PROCEDURE INTERPRETED AT [facility] DEPARTMENT OF RADIOLOGY Final Report Signed by: Dr. Marcel Soto
[2016-10-02] MEDS ORDERED: INSULIN GLARGINE 100 UNIT/ML SUBCUT SCH (21:00)
[2016-10-03 06:00] LABS: Basophils % 0.3 % (0.0-0.8); Eosinophils # 0.5 10*3/uL (0.0-0.87); Hematocrit 32.9 VOL% (35.7-47.0); Hemoglobin 10.9 GM/DL (12.0-16.0); Immature Granulocytes % 0.7 %; Immature Granulocytes Absolute 0.08 #; Lymphocytes # 1.2 10*3/uL (1.4-4.0); Lymphocytes % 10.6 % (21.3-54.2); Mean Corpuscular HGB Conc 33.1 GM/DL (32-36); Mean Corpuscular Hemoglobin 29 PG (27-34); Mean Platelet Volume 10.6 FL (9.6-12.0); Monocytes # 2.1 10*3/uL (0.11-0.8); Monocytes % 18.2 % (1.7-12.7); Neutrophils # 7.7 10*3/uL (1.4-7.4); Neutrophils % 66.2 % (38.7-73.9); Platelet Count 83 T/CUMM (130-400); Red Blood Count 3.74 MC/CUMM (3.8-5.5); Red Cell Distribution Width 12.9 % (9.3-17.3); White Blood Count 11.6 T/CUMM (4-12)
[2016-10-03 06:33] LABS: Calcium 8.2 MG/DL (8.5-10.1); Magnesium 2.4 MG/DL (1.8-2.4); Potassium 3.9 MMOL/L (3.5-5.1)
[2016-10-03 06:36] LABS: Hypochromasia 1+; Microcytosis 1+; Platelet Estimate Decreased
--- NOTE | 2016-10-03 08:21 | Orthopedic Progress Note ---
Assessment and Plan (1) Bimalleolar fracture of left ankle Status: Acute Current Visit: Yes Qualifiers: Encounter type: initial encounter Fracture type: closed Qualified Code(s) : S82.842A - Displaced bimalleolar fracture of left lower leg, initial encounter for closed fracture Orthopedics - Subjective Interval history: Ms Soto is complaining of left shoulder pain. She states that she is always had some pain in her left shoulder. Seems to be worse now that she has been hospitalized. Exam shows moderate discomfort with active and passive range of motion of her shoulder. Active range of motion is limited secondary to pain. She is tender about superior and lateral aspects of her shoulder. There is no gross ecchymosis or deformity. X-rays 3 views shoulder were obtained yesterday and they demonstrate normal glenohumeral joint and subacromial space. She has severe AC degenerative changes. Impression: Status post open reduction fixation left ankle. #2 probable chronic rotator cuff tendinopathy with impingement, possible chronic rotator cuff tear Plan: For her shoulder, advised occupational therapy to work with her on a shoulder program. No new recommendations for ankle. From my standpoint she can be discharged to swing bed when bed available. She is to follow-up with me in 10-14 days. Keep splint clean, dry and intact. Elevate left lower extremity 6 inches over heart level. Strict nonweightbearing left lower extremity. Exam - Constitutional Vitals: Period Temp Pulse Resp BP Sys/Guajardo Pulse Ox Last 24 Hr 96.7 F-98.6 F 60-76 16-20 96-147/41-68 93-97 Results - Labs CBC & BMP: 10/03/16 04:53 10/03/16 04:53 Quality Measures - VTE Contraindication to Pharmacological VTE Prophylaxis: Thrombocytopenia Specialty Discharge - Follow Up or Referrals Follow up with: Bentley Kulkarni MD [Physician] - 11/04/16 9:00 am (APPT WITH DR KULKARNI IS October AT 900AM FOR LAB AND TO SEE DR KULKARNI AT 920AM)
[2016-10-03] MEDS: ROSUVASTATIN 20 MG TABLET PO SCH (08:42)
--- NOTE | 2016-10-03 08:42 | Hospitalist Progress Note ---
Hospitalist: Subjective Interval history: No new complaints. No significant overnight events. Pain control. Tolerating oral intake. Positive bowel movements. Exam - Constitutional Vitals: Period Temp Pulse Resp BP Sys/Guajardo Pulse Ox Last 24 Hr 96.7 F-98.6 F 60-76 16-20 96-147/41-68 93-97 Exam: A and O x 2, morbidly obese RRR no M CTAB nonlabored Soft, NT, ND, +BS Warm no c/c; +nonpitting edema of fingers; left ankle elevated and bandages/GAUTAM wrap in place Results - Labs CBC & BMP: 10/03/16 04:53 10/03/16 04:53 - Impressions (1) Syncope Status: Acute Assessment and plan: - possibly due to dehydration/ vasovagal etiologies - Cardiology input appreciated. 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 Adjust as needed Current Visit: Yes Qualifiers: Diabetes mellitus type: type 2 Diabetes mellitus complication status: with circulatory complication Diabetes mellitus complication detail: with other circulatory complications Diabetes mellitus longitudinal float operator insulin use: without halfway use Qualified Code(s): E11.59 - Type 2 diabetes mellitus with other circulatory complications (3) History of chronic systolic CHF but EF is now improved/preserved; CAD s/p CABG Status: Acute Assessment and plan: Cardiology following. Cont medical management. Current Visit: Yes (4) Bimalleolar fracture of left ankle s/p left lateral malleolus ORIF with closed treatment medial malleolus avulsion fracture 10/01 Status: Acute Current Visit: Yes Qualifiers: Encounter type: initial encounter Fracture type: closed Qualified Code(s) : S82.842A - Displaced bimalleolar fracture of left lower leg, initial encounter for closed fracture - Ortho following. Cont routine post-op care per ortho recs. Labs in am (5) Chronic thrombocytopenia- etiology unclear- appears to be some component of pseudothrombocytopenia - Will follow. Not on heparin. Coags ok. back to baseline after CBC drawn in purple top tube. If signs of bleeding, transfuse. DVT prophylaxis per ortho D/W pt, nurse and case aide. To Rehab. Quality Measures - VTE Contraindication to Pharmacological VTE Prophylaxis: Thrombocytopenia Specialty Discharge - Follow Up or Referrals Follow up with: Josue Man Jr., MD [Physician] - 10/14/16 12:00 pm Bentley Kulkarni MD [Physician] - 11/04/16 9:00 am (APPT WITH DR KULKARNI IS October AT 900AM FOR LAB AND TO SEE DR KULKARNI AT 920AM)
[2016-10-03] MEDS: ASPIRIN CHEW 81 MG TABLET PO SCH (08:43)
[2016-10-03] MEDS: METOPROLOL SUCCINATE XL 25 MG TABLET PO SCH (08:43)
[2016-10-03] MEDS: PANTOPRAZOLE 40 MG TABLET PO SCH (08:43)
[2016-10-03] MEDS: VALSARTAN 80 MG TABLET PO SCH (08:43)
[2016-10-03] MEDS: INSULIN LISPRO 100 UNIT/ML SUBCUT SCH ×2 (08:44→11:22)
[2016-10-03] MEDS: MAGNESIUM HYDROXIDE SUSP 30 ML UDCUP PO PRN (08:49)
--- NOTE | 2016-10-03 10:49 | Discharge Summary ---
<Jodie Lyons - Last Filed: 10/03/16 10:26> Hospital Course - Hospital Course Hospital Course: Ms. Soto is a 86 year old white female with a history of htn, dm, chf, mi with stents, and hypothyroidism that presented to the ED via EMS on 09-29-16 after having a syncopal episode at home earlier this morning. The patient states that she felt fine but after getting out of the shower and drying off, she felt dizzy at which point she fell. She states losing consciousness briefly and activating her life alert bracelet once she came to. EMS was called and when the airplane mechanic apprentice on the scene arrived, she was nauseated, vomited and experienced an episode of diarrhea. On arrival to ED patient was found to have fractured her left ankle. Patient will be admitted for further eval. Cardiology and ortho have been consulted to assist with patient's care. Cardiology saw patient for syncope and added several medications to her regimen , ordered an echo and orthostatic blood pressures. Orthostatic patient and she was placed in a short leg splint with stirrups. Patient was also scheduled for open reduction fixation of her fibula. Physical therapy was also consulted to assist with gait. Pt had a left lateral malleolus open reduction and fixation with closed treatment medial malleolus avulsion fracture on 10/01. Patient tolerated the procedure well. Today surgery cleared the patient for discharge. His recommendations are for occupational therapy and physical therapy work with the patient. She is to be discharged to a swing bed. She is also to follow-up with surgery in 10-14 days. Diagnosis - Discharge Diagnosis (1) Left fibular fracture Status: Deleted (2) Syncope Status: Acute (3) Diabetes Status: Chronic (4) History of myocardial infarction Status: Chronic Specialty Discharge - Follow Up or Referrals Follow up with: Josue Man Jr., MD [Physician] - 10/14/16 12:00 pm Bentley Wilkinson MD [Physician] - 11/04/16 9:00 am (APPT WITH DR WILKINSON IS October AT 900AM FOR LAB AND TO SEE DR WILKINSON AT 920AM) Discharge Plan - Discharge Data Disposition: Swing Bed, Hos Based, [facility] - Discharge Medications New Glucagon 1 mg IM PRN PRN #0 vial PRN Reason: Hypoglycemia w/o IV access HYDROcodone/ACETAMIN 5-325 [[place] 5-325] 1 tablet PO Q4H PRN #30 tablet PRN Reason: Pain Moderate To Severe (4-10) Insulin Glargine [Lantus] 10 unit SUBCUT BEDTIME #0 unit Insulin Lispro [HumaLOG] See Protocol SUBCUT ACHS unit Pantoprazole Tab [Protonix Tab] 40 mg PO DAILY tablet Polyethylene Glycol Powder [Miralax] 17 gm PO DAILY PRN #30 pack PRN Reason: Constipation Rosuvastatin [Crestor] 20 mg PO DAILY tablet Valsartan [Diovan] 40 mg PO DAILY tablet Acetaminophen Tab [Tylenol Tab] 650 mg PO Q4H PRN #0 tablet PRN Reason: Fever, Headache, Mild Pain Metoprolol Succinate Xl [Toprol Xl] 25 mg PO DAILY tablet Zaleplon [Sonata] 5 mg PO BEDTIME PRN #0 capsule PRN Reason: Insomnia Continue [place] 3 Acid Ethyl Esters [Lovaza] 2 gm PO BID Nitroglycerin Sl Tab [Nitrostat] 0.4 mg SL Q5M PRN PRN Reason: Chest Pain Travoprost 0.004% Oph Soln [Travatan Z] 1 drop BOTH EYES DAILY Propylene Glycol/Peg 400 [Systane Ultra] 1 drop BOTH EYES DAILY Biotin 1 mg PO DAILY Aspirin EC Tab 81 mg PO DAILY Saxagliptin HCl [Onglyza] 5 mg PO DAILY Omeprazole 20 mg PO BID Isosorbide Dinitrate 10 mg PO BID Cyanocobalamin (Vitamin B-12) [Vitamin B-12] 1,000 mcg PO DAILY Levothyroxine Sodium 75 mcg PO DAILY Discontinued Potassium Chloride [Potassium Chloride] 20 meq PO TID Gabapentin [Gabapentin] 100 mg PO BID Furosemide [Furosemide] 40 mg PO DAILY Carvedilol [Carvedilol] 3.125 mg PO BID - Follow Up or Referral Follow Up: Josue Man Jr., MD [Physician] - 10/14/16 12:00 pm Bentley Wilkinson MD [Physician] - 11/04/16 9:00 am (APPT WITH DR WILKINSON IS October AT 900AM FOR LAB AND TO SEE DR WILKINSON AT 920AM) - Forms/Instructions Instructions: [facility] Closed Reduction Surgery Discharge Instructions Exam - Constitutional Vitals: Period Temp Pulse Resp BP Sys/Guajardo Pulse Ox Last 24 Hr 96.7 F-98.2 F 60-69 18-20 96-147/41-68 93-97 Discharge Results Procedures and tests throughout hospitalization: Pending Orders 09/29/16 19:45 Urinalysis Routine 10/04/16 04:00 BMP w/ Mg [Basic Metabolic Panel w/Mg] IN AM Labs on day of discharge: Labs from last 24 hours 10/03/16 10/03/16 10/03/16 11:16 08:36 04:53 WBC 11.6 RBC 3.74 L Hgb 10.9 L Hct 32.9 L MCV 88.0 MCH 29 MCHC 33.1 RDW 12.9 Plt Count 83 L MPV 10.6 Neut % (Auto) 66.2 Lymph % (Auto) 10.6 L [place] % (Auto) 18.2 H Eos % (Auto) 4.0 Baso % (Auto) 0.3 Neut # (Auto) 7.7 H Lymph # (Auto) 1.2 L [place] # (Auto) 2.1 H Eos # (Auto) 0.5 Baso # (Auto) 0.0 Immature Gran % 0.7 Nucleated RBC % 0.0 Immature Gran # 0.08 Nucleated RBCs # 0.00 Platelet Estimate Decreased Hypochromasia 1+ Microcytosis 1+ Morphology Comment Sodium Potassium Chloride Carbon Dioxide Anion Gap BUN Creatinine GFR Calculation BUN/Creatinine Ratio Glucose POC Glucose 143 H 222 H Calculated Osmolality Calcium Magnesium 10/03/16 10/02/16 10/02/16 04:53 19:03 15:35 WBC RBC Hgb Hct MCV MCH MCHC RDW Plt Count MPV Neut % (Auto) Lymph % (Auto) [place] % (Auto) Eos % (Auto) Baso % (Auto) Neut # (Auto) Lymph # (Auto) [place] # (Auto) Eos # (Auto) Baso # (Auto) Immature Gran % Nucleated RBC % Immature Gran # Nucleated RBCs # Platelet Estimate Hypochromasia Microcytosis Morphology Comment Sodium 143 Potassium 3.9 Chloride 104 Carbon Dioxide 31 Anion Gap 11.9 BUN 16 Creatinine 1.00 GFR Calculation 54 BUN/Creatinine Ratio 16.00 Glucose 119 H POC Glucose 214 H 132 H Calculated Osmolality 286.0 Calcium 8.2 L Magnesium 2.4 DS: Provider Date of admission: 09/29/16 17:46 Primary care physician: . No PCP Attending physician on admission: Ld Irving MD Consults: 09/29/16 19:45 Consult to Physician [CONS] Routine Comment: Consulting Provider: Josue Man Jr. Consulting Provider Notified: Yes When should Consulting Provider be notified: Now Consult to Specialist Group: Orthopedic When should Consulting Provider be notified: Now Person Notified: TOBY-DR MAN HAS ALREADY SEEN PT Date Notified: 09/30/16 Time Notified: 09:22 Consult to Physician [CONS] Routine Comment: Consulting Provider: Bentley Wilkinson Consulting Provider Notified: Yes When should Consulting Provider be notified: Now Consult to Specialist Group: Cardiology When should Consulting Provider be notified: Now Person Notified: DERICK Date Notified: 09/30/16 Time Notified: 08:44 09/29/16 20:40 Consult to Pastoral Services [CONS] Routine Comment: Pastoral Screen: Request Emergency Medical Dispatcher Visit Pastoral Screen Source of Request: Patient 09/30/16 08:28 Consult to Physical Therapy [CONS] Routine Reason for Physical Therapy: Evaluate and Treat Gait Training Start Therapy: Today Consult Comment: lj lewis 10/01/16 09:42 Consult to Case Mgmt/Social Srvs [CONS] Routine Reason for Case Mgmt/Social Srvs: Home Health Rehab Equipment Consult to Occupational Therapy [CONS] Routine Reason for Occupational Therapy: Evaluate and Treat Discharging clinician: Jodie Lyons NP <Lola Choudhury - Last Filed: 10/03/16 13:34> Hospital Course - Hospital Course Hospital Course: Patient is an 86-year-old female who presented to the hospital with a chief complaint of syncope and fall. It was not her syncope was due to possible dehydration and vasovagal etiologies. She was found to have a bimalleolar fracture of the left ankle. Cardiology was consulted for preop clearance given her history of CHF and coronary artery disease status post a CABG. EKG and echo were ordered. Patient had a history of chronic systolic congestive heart failure but her EF has since significantly improved to normal. She had a low to intermediate risk of surgery and medications were adjusted. Once evaluated by cardiology patient was taken for a left lateral malleolus ORIF with closed treatment of the medial malleolus avulsion fracture on October 01. She had an unremarkable postop course. She was noted to have chronic thrombocytopenia etiology of which was unclear. Coagulation factors were noted to be normal and no anticoagulants were given based on these levels. At the time of discharge her platelet count was in the 80,000's. She did participate well with physical and Occupational Therapy. Also recommended nonweightbearing and follow-up with him in 10-14 days. For diabetes mellitus type 2 with neuropathy patient was continued with insulin with Accu-Cheks before meals and at bedtime. When she was cleared by all consultants patient was discharged to rehab for ongoing care. - Time spent with patient Time with patient DS: Greater than 30 minutes (43 minutes arranging this discharge) Discharge Plan - Discharge Data Condition at Discharge: Stable Discharge Diet: advance to your usual diet Activity: other (Nonweightbearing of the left leg per orthopedics) Contact your physician if you experience:: fever over 101, Difficulty voiding, Redness or swelling, Nausea/Vomiting, Shortness of breath, Bleeding, pain uncontrolled by pain medications - Forms/Instructions Additional Discharge Instructions: CBC in 1 week
[2016-10-03] MEDS ORDERED: BISACODYL 10 MG SUPP RECTAL ONE (11:00)
[2016-10-03 14:01] VITALS: BP 156/67
== END 2016-10-03 13:55 | disposition swing bed (61) | DRG 493 ==
LOC: EDUNIT# → EDBD → N.ED 14:00 → SUATTDRO 17:46 → N.EDINP 17:46 → N.4E 18:23
PROVIDERS: ADMIT Internal Medicine; ATTEND Pediatrics

== ENCOUNTER 2016-10-15 11:16 | Inpatient (IN) ==
[2016-10-15] MEDS ORDERED: SODIUM CHLORIDE 0.9% 2,450 ML IV ONE (11:43)
--- NOTE | 2016-10-15 11:53 | Emergency Department Note ---
Pryia Pompa [place], am scribing for, and in the presence of, Sagar Blair MD 11 :49. Rossy Pompa James D, MD, personally performed the services described in this documentation, ascribed by Bishop Powers in my presence, and it is both accurate and complete 153 . Arrival - Arrival Chief Complaint: Weakness Stated Complaint: weakness ED Nursing Triage Note: Brought in per EMS from [facility] for further evaluation of weakness and fever onset symptoms 10/13/2016. + generalized weakness. +generalized body aches. Mode of Arrival: Stretcher Limitations: No Limitations Source: Patient Time Seen by Provider: 10/15/16 11:37 - History of Present Illness HPI Narrative: This is a 86 y/o white female presenting to the ED from [facility] for further evaluation for weakness and fever symptoms that onset 10/13/16. Pt states she has neck stiffness, generalized weakness, body aches, cough, and abdominal. She has had surgery on her left leg with a well healing scar. She denies fever, chills, nausea, vomiting, diarrhea, abdominal pain, and back pain. Pt was diagnosed with a UTI but states she never received medications for this issue. Her PMHx is consistent with CHF, MN, HTN, diabetes, and rheumatoid arthritis. Consistency: constant Severity: moderate Date of Last Menstrual Period: PM Allergies/Adverse Reactions: Allergies Allergy/AdvReac Type Severity Reaction Status Date / Time Amoxicillin Allergy Unknown/Unable Verified 10/15/16 11:29 to obtain atorvastatin [From Lipitor] Allergy Unknown/Unable Verified 10/15/16 11:29 to obtain diphenhydramine Allergy Unknown/Unable Verified 10/15/16 11:29 [From Benadryl] to obtain Neomycin Allergy Unknown/Unable Verified 10/15/16 11:29 to obtain niacin Allergy Unknown/Unable Verified 10/15/16 11:29 to obtain rosuvastatin [From Crestor] Allergy Unknown/Unable Verified 10/15/16 11:29 to obtain Home Medications: Home Medications Medication Instructions Recorded Confirmed Type Aspirin EC Tab 81 mg PO DAILY 09/29/16 10/03/16 History Biotin 1 mg PO DAILY 09/29/16 10/03/16 History Cyanocobalamin (Vitamin B-12) 1,000 mcg PO DAILY 09/29/16 10/03/16 History [Vitamin B-12] Isosorbide Dinitrate 10 mg PO BID 09/29/16 10/03/16 History Levothyroxine Sodium 75 mcg PO DAILY 09/29/16 10/03/16 History Nitroglycerin Sl Tab [Nitrostat] 0.4 mg SL Q5M PRN 09/29/16 10/03/16 History [place] 3 Acid Ethyl Esters [Lovaza] 2 gm PO BID 09/29/16 10/03/16 History Omeprazole 20 mg PO BID 09/29/16 10/03/16 History Propylene Glycol/Peg 400 [Systane 1 drop BOTH EYES DAILY 09/29/16 10/03/16 History Ultra] Saxagliptin HCl [Onglyza] 5 mg PO DAILY 09/29/16 10/03/16 History Travoprost 0.004% Oph Soln 1 drop BOTH EYES DAILY 09/29/16 10/03/16 History [Travatan Z] Acetaminophen Tab [Tylenol Tab] 650 mg PO Q4H PRN #0 tablet 10/03/16 10/03/16 Rx HYDROcodone/ACETAMIN 5-325 [[place] 1 tablet PO Q4H PRN #30 tablet 10/03/16 Rx 5-325] Insulin Glargine [Lantus] 10 unit SUBCUT BEDTIME #0 unit 10/03/16 10/03/16 Rx Insulin Lispro [HumaLOG] See Protocol SUBCUT ACHS unit 10/03/16 10/03/16 Rx Metoprolol Succinate Xl [Toprol Xl] 25 mg PO DAILY tablet 10/03/16 10/03/16 Rx Pantoprazole Tab [Protonix Tab] 40 mg PO DAILY tablet 10/03/16 10/03/16 Rx Polyethylene Glycol Powder 17 gm PO DAILY PRN #30 pack 10/03/16 10/03/16 Rx [Miralax] Rosuvastatin [Crestor] 20 mg PO DAILY tablet 10/03/16 10/03/16 Rx Valsartan [Diovan] 40 mg PO DAILY tablet 10/03/16 10/03/16 Rx Zaleplon [Sonata] 5 mg PO BEDTIME PRN #0 capsule 10/03/16 10/03/16 Rx Review of System - Review of System 12 point system: reviewed and no additional remarkable complaints except as stated - Review of System Constitutional: Present: weakness, other (generalized body aches ). Absent: chills, fever Eyes: Absent: redness Head/Ears/Nose/Throat: Absent: earache, nasal drainage Respiratory: Absent: cough Cardiovascular: Absent: chest pain, dyspnea on exertion Gastrointestinal: Absent: abdominal pain, nausea, vomiting Genitourinary female: Absent: dysuria Musculoskeletal: Present: neck pain. Absent: arm pain, back pain, leg pain Skin: Absent: rash Neurological: Present: weakness. Absent: headache, numbness, confusion, vertigo Psychiatric: Absent: anxiety Endocrine: Absent: fatigue Hematological/Lymphatic: Absent: easy bleeding Allergic/Immunologic: Absent: facial swelling Medical,Surgical,& Family Hx - Medical History Cardio: History of: CHF, Hypertension, MN (MIx4), Cardiovascular Problems Neurology: No history of: Seizures HEENT: History of: Eye Problem (several eye surgeries ; cataract removal), Glaucoma Endocrine: History of: Diabetes Mellitus (NIDDM) Rheumatology: History of;: Rheumatoid Arthritis Gastrointestinal: History of: GERD Musculoskeletal: History of: Back/Neck Problems (CHRONIC LOWER BACK PAIN) No history of: Amputation - Surgical History Cardiac Surgeries: Sugical HX of: Cardiac Catheterization (stent x 1 dr. gzuman) Thoracic Surgeries: Patient denies;: Lobectomy Neurologic Surgeries: Patient denies: Neurologic Surgery Abdominal Surgeries: Patient denies: Abdominal Surgery Reproductive Surgeries: Patient denies;: Gynecologic Surgery Orthopedic Surgeries: Surgical HX of;: Orthopedic Surgery (ORIF left ankle-2016) - Family History Family History: Reports;: Family Heart Disease Denies;: Family Anesthesia Reaction - Social History Smoking Status: Never smoker Frequency of Alcohol Use: None Type of Drug Use: None Exam Vital Signs: Vital Signs Temperature 99.5 F 10/15/16 11:16 Pulse Rate 92 H 10/15/16 14:15 Respiratory Rate 20 10/15/16 14:15 Blood Pressure 133/66 10/15/16 14:15 O2 Sat by Pulse Oximetry 100 10/15/16 14:15 - General General appearance: alert, in no apparent distress - Head Head exam: Present: atraumatic, normocephalic, normal inspection - Eye Eye exam: Present: normal appearance, PERRL, EOMI - ENT ENT exam: Present: normal exam, normal oropharynx, mucous membranes moist, TM's normal bilaterally, normal external ear exam - Neck Neck exam: Present: normal inspection, full ROM, trachea midline. Absent: tenderness - Chest Chest inspection: Present: normal inspection, symmetric chest wall rise. Absent : tenderness - Respiratory Respiratory exam: Present: wheezes (bilateral ). Absent: normal lung sounds bilaterally - Cardiovascular Cardiovascular exam: Present: regular rate, normal rhythm, normal heart sounds - Abdominal Exam Abdominal exam: Present: soft, normal bowel sounds. Absent: distention, tenderness - Extremities Exam Extremities exam: Present: normal inspection, full ROM, normal capillary refill. Absent: tenderness, pedal edema, calf tenderness - Back Exam Back exam: Present: normal inspection, full ROM. Absent: tenderness - Neurological Exam Neurological exam: Present: alert, oriented X3, CN II-XII intact, normal gait, reflexes normal - Psychiatric Psychiatric exam: Present: normal affect, normal mood - Skin Skin exam: Present: warm, dry, intact, normal color. Absent: rash, diaphoresis Course - Consultations Consultation #1: Discussed with hospitalist. Patient will be admitted to their service. Time: 14:30 Results - Labs Lab Results: I have reviewed the patients labs Labs: Lab reviewed from earlier today at the [facility]. Laboratory Tests 10/15/16 12:21 Lactic Acid 2.4 H - Diagnostic Findings Procedure: CT: report reviewed by me (CT head: No acute intracranial lesion or hemorrhage.) Disposition Clinical Impression: Fever, Sepsis, Urinary tract infection Case discussed with: patient Disposition: Still a Patient Condition: Guarded Time of Disposition: 14:51
[2016-10-15] MEDS ORDERED: GENTAMICIN INJ 240 MG in SODIUM CHLORIDE 0.9% 100 ML IV SCH (12:00)
--- NOTE | 2016-10-15 12:08 | XRay Report ---
Referring Physician: Sagar Blair Exam: XR chest 1V portable Date: October 15, 2016 at 11:50 AM Reason: Cough, fever Comparison: Chest one view portable October 14, 2016 Findings: The cardiac silhouette is again enlarged. No focal consolidation, pneumothorax or pleural effusion is identified. No acute osseous process is seen. Impression: 1. Cardiomegaly. 2. No acute pulmonary process is identified. PROCEDURE INTERPRETED AT [facility] DEPARTMENT OF RADIOLOGY Final Report Signed by: Dr. Jossue Nielsen
[2016-10-15] MEDS ORDERED: cefTRIAXone 1,000 MG in SODIUM CHLORIDE 0.9% 100 ML IV STA (12:50)
[2016-10-15] MEDS ORDERED: cefTRIAXone 1,000 MG VIAL ONE (12:55)
[2016-10-15] MEDS ORDERED: VANCOMYCIN 1,000 MG VIAL ONE (13:12)
[2016-10-15] MEDS ORDERED: GENTAMICIN 80 MG/2 ML VIAL ONE (13:12)
--- NOTE | 2016-10-15 13:41 | CT Report ---
Referring physician: Sagar Blair Exam: CT brain without contrast Date: October 15, 2016 Comparison: CT brain without contrast September 29, 2016 Reason: Fever, neck stiffness The patient is an Emergency Department patient on October 15, 2016. Technique: Axial images of the head were obtained without the use of contrast. Total DLP was 970.1 mGy*cm. Findings: There is mild to moderate generalized cerebral atrophy/volume loss and probable chronic microvascular ischemic change. This is similar to before. No hydrocephalus or midline shift is present. There is no evidence of recent intracranial hemorrhage, abnormal mass effect or an acute infarction. No acute osseous process is seen. There is again mild mucosal thickening versus fluid within the right sphenoid sinus and mild chronic fluid within the right mastoid air cells. Impression: 1. No acute intracranial process is identified. 2. Chronic findings as described above. The CT exam was performed using one or more of the following dose reduction techniques: Automated exposure control and adjustment of the mA and/or kV according to patient size. PROCEDURE INTERPRETED AT [facility] DEPARTMENT OF RADIOLOGY Final Report Signed by: Dr. Jossue Nielsen
[2016-10-15 14:34] LABS: Glucose,CSF 93 MG/DL (40-70)
[2016-10-15 14:35] LABS: Apearance,Urine CLOUDY (Clear); Bacteria,Urine Moderate /HPF (Few); Bilirubin,Urine Negative (Negative); Blood, Urine Moderate mg/dL (Negative); Glucose,Urine (UA) Negative (Negative); Ketones,Urine Negative (Negative); Mucus,Urine Occasional /LPF (Occasional); Nitrite,Urine Negative (Negative); Protein,Urine 100 MG/DL; RBC,Urine 2 /HPF (0-4); Urine Color Yellow (Yellow); Urine Specific Gravity 1.009 (1.001-1.035); Urine Urobilinogen < 2.0 EU/DL (0.2-1.0); WBC,Urine 110 /HPF (0-6)
--- NOTE | 2016-10-15 14:39 | Post Interventional Procedure ---
Pre-op diagnosis: Fever, meningismus Post-op diagnosis: same Procedure: Fluoroscopy guided lumbar puncture Radiologist: Rose Dodge Anesthesia: local Estimated blood loss: none Complications: none Condition: stable Description/Findings: Informed consent was obtained. Formal timeout was performed. The patient was placed prone on the fluoroscopy table. The low back was prepped and draped in a sterile fashion. A midline lumbar puncture was then performed at the L4-L5 interspace using a 22-gauge spinal needle. Fluoroscopic guidance was used and a captured image documents the needle position. An opening pressure of 7 cm water was obtained. 4.5 cc clear, colorless CSF was withdrawn and sent to laboratory. Needle was removed and a bandage placed the puncture site. Fluoroscopy time: 0.8 minutes Assessment and Plan - Time spent with patient Time spent with patient: Less than 30 minutes
--- NOTE | 2016-10-15 14:42 | Interventional Radiology Rpt ---
History: Fever, meningismus Date: 10/15/2016 Study: Fluoroscopy guided lumbar puncture Comparison exam: Not applicable Lumbar puncture with fluoroscopy Description: Informed consent was obtained. Formal timeout was performed. The patient was placed prone on the fluoroscopy table. The low back was prepped and draped in a sterile fashion. A midline lumbar puncture was then performed at the L4-L5 interspace using a 22-gauge spinal needle. Fluoroscopic guidance was used and a captured image documents the needle position. An opening pressure of 7 cm water was obtained. 4.5 cc clear, colorless CSF was withdrawn and sent to laboratory. Needle was removed and a bandage placed the puncture site. Fluoroscopy time: 0.8 minutes. Fluoroscopic image saved: 37 Impression: Lumbar puncture as described. PROCEDURE INTERPRETED AT [facility] DEPARTMENT OF RADIOLOGY Final Report Signed by: Dr. Rose Dodge
[2016-10-15 14:55] LABS: Lymphocytes,CSF 62 %; Monocytes,CSF 23 %; Neutrophils,CSF 15 %; Red Blood Cell,CSF 23 C/CUMM; White Blood Cell,CSF 2 C/CUMM
[2016-10-15 14:56] LABS: Appearance,CSF Clear
[2016-10-15 15:17] LABS: PT Patient Result 11.1 SECS; Partial Thromboplastin Time 22.4 SECS (0-40)
--- NOTE | 2016-10-15 16:46 | Operative Note ---
Date of procedure: 10/15/16 Pre-op diagnosis: Meningitis Post-op diagnosis: same Procedure: Right internal jugular vein central venous line under ultrasound guidance Findings and technique: After informed consent was obtained and the risks discussed in detail with the patient she elected to proceed. The right neck was sterilely prepped and draped in usual sterile fashion and a sterile ultrasound probe placed in the right neck with the internal jugular vein was visualized and accessed with a single stick. Guidewire was advanced without resistance and a stab incision made at the guidewire puncture site. A dilator was passed over the guidewire and the catheter introduced over the guidewire and the guidewire removed the catheter was easily accessed aspirated and flushed and sutured to the skin she appeared to tolerate the procedure well chest x-ray is pending Anesthesia: local Surgeon / Physician: German Berumen III. Estimated blood loss: none Specimens: none sent Condition: stable Disposition: no change Discharge Plan - Discharge Medications No Action [place] 3 Acid Ethyl Esters [Lovaza] 2 gm PO BID Nitroglycerin Sl Tab [Nitrostat] 0.4 mg SL Q5M PRN PRN Reason: Chest Pain Travoprost 0.004% Oph Soln [Travatan Z] 1 drop BOTH EYES DAILY Propylene Glycol/Peg 400 [Systane Ultra] 1 drop BOTH EYES DAILY Biotin 1 mg PO DAILY Aspirin EC Tab 81 mg PO DAILY Saxagliptin HCl [Onglyza] 5 mg PO DAILY Omeprazole 20 mg PO BID HYDROcodone/ACETAMIN 5-325 [[place] 5-325] 1 tablet PO Q4H PRN #30 tablet PRN Reason: Pain Moderate To Severe (4-10) Insulin Glargine [Lantus] 10 unit SUBCUT BEDTIME #0 unit Insulin Lispro [HumaLOG] See Protocol SUBCUT ACHS unit Pantoprazole Tab [Protonix Tab] 40 mg PO DAILY tablet Polyethylene Glycol Powder [Miralax] 17 gm PO DAILY PRN #30 pack PRN Reason: Constipation Rosuvastatin [Crestor] 20 mg PO DAILY tablet Valsartan [Diovan] 40 mg PO DAILY tablet Isosorbide Dinitrate 10 mg PO BID Cyanocobalamin (Vitamin B-12) [Vitamin B-12] 1,000 mcg PO DAILY Levothyroxine Sodium 75 mcg PO DAILY Acetaminophen Tab [Tylenol Tab] 650 mg PO Q4H PRN #0 tablet PRN Reason: Fever, Headache, Mild Pain Metoprolol Succinate Xl [Toprol Xl] 25 mg PO DAILY tablet Zaleplon [Sonata] 5 mg PO BEDTIME PRN #0 capsule PRN Reason: Insomnia - Follow Up or Referral - Forms/Instructions
--- NOTE | 2016-10-15 16:53 | Hospitalist History & Physical ---
Assessment and Plan (1) Urinary tract infection Status: Acute Assessment and plan: Admit to [facility] surg bed. Start patient on gentle hydration. IV antibiotics (Vanc and Meropenem). Monitor labs. Current Visit: Yes (2) Bimalleolar fracture of left ankle Status: Acute Assessment and plan: Pt s/p fracture and repair of left ankle. PT/OT Current Visit: No Qualifiers: Encounter type: initial encounter Fracture type: closed Qualified Code(s) : S82.842A - Displaced bimalleolar fracture of left lower leg, initial encounter for closed fracture (3) Diabetes Status: Chronic Assessment and plan: Sidney TORRES. SSI. Hemoglobin A1c in am. 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 Soto is a 86 year old white female with a hx of recent ankle fracture, chf , mi, htn, dm, and rheumatoid arthritis that was sent over from [facility] for evaluation of weakness and fever. Pt. was s/p recent left leg fracture repair. Pt. complained of neck stiffness and weakness at the facility. Labs reveal wbc of 38 and pt is positive for UTI. Lumbar puncture performed. Pt' s case discussed with Dr. Anderson. Pt. will be admitted for further evaluation. Home Medications Medication Instructions Recorded Confirmed Type Aspirin EC Tab 81 mg PO DAILY 09/29/16 10/03/16 History Biotin 1 mg PO DAILY 09/29/16 10/03/16 History Cyanocobalamin (Vitamin B-12) 1,000 mcg PO DAILY 09/29/16 10/03/16 History [Vitamin B-12] Isosorbide Dinitrate 10 mg PO BID 09/29/16 10/03/16 History Levothyroxine Sodium 75 mcg PO DAILY 09/29/16 10/03/16 History Nitroglycerin Sl Tab [Nitrostat] 0.4 mg SL Q5M PRN 09/29/16 10/03/16 History [place] 3 Acid Ethyl Esters [Lovaza] 2 gm PO BID 09/29/16 10/03/16 History Omeprazole 20 mg PO BID 09/29/16 10/03/16 History Propylene Glycol/Peg 400 [Systane 1 drop BOTH EYES DAILY 09/29/16 10/03/16 History Ultra] Saxagliptin HCl [Onglyza] 5 mg PO DAILY 09/29/16 10/03/16 History Travoprost 0.004% Oph Soln 1 drop BOTH EYES DAILY 09/29/16 10/03/16 History [Travatan Z] Acetaminophen Tab [Tylenol Tab] 650 mg PO Q4H PRN #0 tablet 10/03/16 10/03/16 Rx HYDROcodone/ACETAMIN 5-325 [[place] 1 tablet PO Q4H PRN #30 tablet 10/03/16 Rx 5-325] Insulin Glargine [Lantus] 10 unit SUBCUT BEDTIME #0 unit 10/03/16 10/03/16 Rx Insulin Lispro [HumaLOG] See Protocol SUBCUT ACHS unit 10/03/16 10/03/16 Rx Metoprolol Succinate Xl [Toprol Xl] 25 mg PO DAILY tablet 10/03/16 10/03/16 Rx Pantoprazole Tab [Protonix Tab] 40 mg PO DAILY tablet 10/03/16 10/03/16 Rx Polyethylene Glycol Powder 17 gm PO DAILY PRN #30 pack 10/03/16 10/03/16 Rx [Miralax] Rosuvastatin [Crestor] 20 mg PO DAILY tablet 10/03/16 10/03/16 Rx Valsartan [Diovan] 40 mg PO DAILY tablet 10/03/16 10/03/16 Rx Zaleplon [Sonata] 5 mg PO BEDTIME PRN #0 capsule 10/03/16 10/03/16 Rx Allergies Allergy/AdvReac Type Severity Reaction Status Date / Time Amoxicillin Allergy Unknown/Unable Verified 10/15/16 11:29 to obtain atorvastatin [From Lipitor] Allergy Unknown/Unable Verified 10/15/16 11:29 to obtain diphenhydramine Allergy Unknown/Unable Verified 10/15/16 11:29 [From Benadryl] to obtain Neomycin Allergy Unknown/Unable Verified 10/15/16 11:29 to obtain niacin Allergy Unknown/Unable Verified 10/15/16 11:29 to obtain rosuvastatin [From Crestor] Allergy Unknown/Unable Verified 10/15/16 11:29 to obtain Medical,Surgical,& Family Hx - Medical History Cardio: History of: CHF, Hypertension, [place] (MIx4), Cardiovascular Problems Neurology: No history of: Seizures HEENT: History of: Eye Problem (several eye surgeries ; cataract removal), Glaucoma Endocrine: History of: Diabetes Mellitus (NIDDM) Rheumatology: History of;: Rheumatoid Arthritis Gastrointestinal: History of: GERD Musculoskeletal: History of: Back/Neck Problems (CHRONIC LOWER BACK PAIN) No history of: Amputation - Surgical History Cardiac Surgeries: Sugical HX of: Cardiac Catheterization (stent x 1 dr. guzman) Thoracic Surgeries: Patient denies;: Lobectomy Neurologic Surgeries: Patient denies: Neurologic Surgery Abdominal Surgeries: Patient denies: Abdominal Surgery Reproductive Surgeries: Patient denies;: Gynecologic Surgery Orthopedic Surgeries: Surgical HX of;: Orthopedic Surgery (ORIF left ankle-2016) - Family History Family History: Reports;: Family Heart Disease Denies;: Family Anesthesia Reaction - Social History Smoking Status: Never smoker Frequency of Alcohol Use: None Type of Drug Use: None Functional capacity: independent ambulation (stand by assistance) - Constitutional Constitutional: Present: fatigue, fever(s), weakness. Absent: chills - EENT Eyes: Absent: blurry vision Ears: Absent: decreased hearing, ear discharge - Cardiovascular Cardiovascular: Absent: chest pain at rest, edema - Respiratory Respiratory: Absent: dyspnea on exertion - Gastrointestinal Gastrointestinal: Absent: diarrhea, nausea, vomiting - Genitourinary Genitourinary: Absent: difficulty urinating - Neurological Neurological: Absent: confusion, numbness - Psychiatric Psychiatric: Absent: confusion Exam - Constitutional Vitals: Period Temp Pulse Resp BP Sys/Guajardo Pulse Ox Last 24 Hr 83 General appearance: no acute distress, over weight - Head Head exam: Present: normal inspection, normocephalic - Eye Eye exam: Present: EOMI. Absent: scleral icterus Pupils: Present: EDWARD. Absent: dilated - Neck Neck exam: Absent: thyromegaly - Respiratory Respiratory exam: Present: other (coarse) - Cardiovascular Cardiovascular exam: Present: regular rate and rhythm - GI/Abdominal GI/Abdominal exam: Present: normal bowel sounds, soft. Absent: tenderness - Extremities Exam Extremities exam: Present: normal capillary refill, full ROM. Absent: edema - Neurological Exam Neurological exam: Present: alert, oriented X3 - Psychiatric Psychiatric exam: Present: normal affect, normal mood - Skin Skin exam: Present: normal color, warm, dry Results - Labs Lab Results: I have reviewed the past 24 hour labs (Labs received from medical record at rehab.)
[2016-10-15] MEDS ORDERED: VANCOMYCIN INJ 1,000 MG in SODIUM CHLORIDE 0.9% 250 ML IV SCH (17:00)
--- NOTE | 2016-10-15 17:02 | Event Note ---
This is an addendum to the H&P dictated by Tyler Lyons, I agree with her assessment and plan. Ms Soto has a medical history of diabetes who was discharged on 10/03 to [facility] for rehab post left fibular fracture repair presents with fever and weakness. She is found to have sepsis, with a WBC of 38 and bandemia of 16 and LA of 2.4. Temperature here was 99.7. She is otherwise hemodynamically stable with the exception of mild tachycardia. LP revealed a slightly elevated protein and glucose, urine suggests a UTI. She will be admitted to the ICU for close observation with Vancomycin and Merrem.
--- NOTE | 2016-10-15 17:06 | XRay Report ---
XR chest 1V portable Indication: Line placement Comparison: Chest x-ray 10/15/2016 Technique: Portable AP chest was performed. Findings: The heart appears minimally enlarged, stable. Interval insertion of right IJ central venous catheter has occurred. The tip lies within the superior vena cava. Pulmonary vasculature demonstrates no specific abnormality. Hilar structures demonstrate fairly symmetric appearance. The lungs are stable compared to previous study. Bones and soft tissues demonstrate no evidence of acute pathology. Impression: 1. No evidence of acute pathology. 10/15/2016 4:51 PM PROCEDURE INTERPRETED AT [facility] DEPARTMENT OF RADIOLOGY Final Report Signed by: Dr. Rehan Lockett
[2016-10-15] MEDS: ACETAMINOPHEN 325 MG TABLET PO PRN (17:45)
[2016-10-15] MEDS: MEROPENEM 1,000 MG in SODIUM CHLORIDE 0.9% 100 ML IV SCH (18:05)
[2016-10-16 05:05] LABS: Basophils # 0.1 10*3/uL (0.0-0.2); Basophils % 0.3 % (0.0-0.8); Eosinophils # 0.2 10*3/uL (0.0-0.87); Eosinophils % 0.6 % (0.00-10.9); Hematocrit 31.9 VOL% (35.7-47.0); Hemoglobin 10.1 GM/DL (12.0-16.0); Immature Granulocytes % 3.9 %; Immature Granulocytes Absolute 1.04 #; Lymphocytes # 0.9 10*3/uL (1.4-4.0); Lymphocytes % 3.5 % (21.3-54.2); Mean Corpuscular HGB Conc 31.7 GM/DL (32-36); Mean Corpuscular Hemoglobin 29 PG (27-34); Mean Corpuscular Volume 92.7 FL (87-102); Mean Platelet Volume 9.7 FL (9.6-12.0); Monocytes % 11.3 % (1.7-12.7); NRBC # 0.02 10*3/uL; Neutrophils # 21.6 10*3/uL (1.4-7.4); Neutrophils % 80.4 % (38.7-73.9); Platelet Count 145 T/CUMM (130-400); Red Blood Count 3.44 MC/CUMM (3.8-5.5); Red Cell Distribution Width 12.9 % (9.3-17.3); White Blood Count 26.9 T/CUMM (4-12)
[2016-10-16 05:40] LABS: Calcium 7.6 MG/DL (8.5-10.1); Magnesium 1.9 MG/DL (1.8-2.4); Osmolality,Calculated 285.4 MOS/KG (273-304); Potassium 4.2 MMOL/L (3.5-5.1)
[2016-10-16 05:49] LABS: Band Neutrophils 1 % (0-10); Lymphocytes 5 % (20-55); Nucleated Red Blood Cells 1 (0-5); Segmented Neutrophils 89 % (50-85); Total Cells Counted 100
[2016-10-16 05:50] LABS: Microcytosis Slight; Platelet Estimate Adequate
[2016-10-16] MEDS: MEROPENEM 1,000 MG in SODIUM CHLORIDE 0.9% 100 ML IV SCH ×2 (06:09→17:51)
--- NOTE | 2016-10-16 10:49 | Hospitalist Progress Note ---
Hospitalist: Subjective Interval history: Patient reports headache is better. She states that she is hungry. She denies any nausea or vomiting or any abdominal pain. Last bowel movement unknown. No cough or shortness of breath. Exam - Constitutional Vitals: Period Temp Pulse Resp BP Sys/Guajardo Pulse Ox Last 24 Hr 97.8 F-101.5 F 65-97 16-83 105-148/4-86 96-100 Exam: Patient is awake alert and oriented to person place in no acute distress, pale elderly female Neck is supple with good range of motion no lymphadenopathy or thyromegaly appreciated Regular rate and rhythm normal S1-S2 no obvious murmurs appreciated Clear to auscultation bilaterally with good aeration nonlabored breathing noted Abdomen is soft nontender protuberant positive bowel sounds no organomegaly or masses appreciated though difficult to assess given her body habitus Warm and well-perfused no clubbing cyanosis or edema Results - Labs CBC & BMP: 10/16/16 04:30 10/16/16 04:30 - Impressions (1) Sepsis due to Urinary tract infection and possible aseptic meningitis Status: Acute Assessment and plan: Cont IVF. IV antibiotics (Vanc and Meropenem). F/U blood and urine cultures. CSF directogens and Cryptococcus are negative. Monitor labs. Current Visit: Yes (2) Recent Bimalleolar fracture of left ankle Assessment and plan: Pt s/p fracture and repair of left ankle. PT/OT Current Visit: No Qualifiers: Encounter type: initial encounter Fracture type: closed Qualified Code(s) : S82.842A - Displaced bimalleolar fracture of left lower leg, initial encounter for closed fracture (3) Diabetes mellituts Status: Chronic Assessment and plan: Accuchecks ACHS. SSI. Hemoglobin A1c in am. 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 See orders
--- NOTE | 2016-10-16 14:32 | EKG Report ---
Stationary ECG Study [facility] ER Test Date: 10/15/2016 4:06:12 PM Pat Name: BONNIE VILLAGRAN Department: Room: 116 Gender: F [employer]: : [id number] Requested by: Sagar Ordonez Order Number: [id number] Reading MD: JANET RENEE Intervals [place] Rate: 83 P: 44 ND: 183 QRS: -34 QRSD: 108 T: 57 QT: 333 QTc: 373 Interpretive Statements SINUS RHYTHM WITH OCCASIONAL VENTRICULAR PREMATURE COMPLEXES MARKED LEFT AXIS DEVIATION PATTERN CONSISTENT WITH PULMONARY DISEASE Electronically Signed On 10-16-16 21:10:18 CDT by JANET RENEE [email or web address]
[2016-10-16] MEDS ORDERED: POLYETHYLENE GLYCOL POWDER 17 GM PACK PO PRN (18:27)
[2016-10-16] MEDS ORDERED: ZALEPLON 5 MG CAPSULE PO PRN (18:27)
[2016-10-16] MEDS: INSULIN LISPRO 100 UNIT/ML SUBCUT SCH ×2 (19:44→22:28)
[2016-10-16] MEDS: TRAVOPROST 0.004% OPH SOLN 2.5 ML BOTTLE BOTH EYES SCH (20:21)
[2016-10-16] MEDS: PROPYLENE GLYCOL BOTH EYES SCH (20:21)
[2016-10-16] MEDS: PEG BOTH EYES SCH (20:21)
[2016-10-16] MEDS: INSULIN GLARGINE 100 UNIT/ML SUBCUT SCH (22:28)
[2016-10-16] MEDS: OMEGA 3 ACID ETHYL ESTERS 1 GM CAPSULE PO SCH (22:29)
[2016-10-16] MEDS: ISOSORBIDE DINITRATE 10 MG TABLET PO SCH (22:33)
[2016-10-17] MEDS: MEROPENEM 1,000 MG in SODIUM CHLORIDE 0.9% 100 ML IV SCH ×2 (06:10→17:53)
[2016-10-17 07:13] LABS: Calcium 7.9 MG/DL (8.5-10.1); Magnesium 1.9 MG/DL (1.8-2.4); Osmolality,Calculated 285.3 MOS/KG (273-304); Potassium 3.8 MMOL/L (3.5-5.1)
[2016-10-17 07:20] LABS: Basophils % 0.2 % (0.0-0.8); Eosinophils # 0.3 10*3/uL (0.0-0.87); Eosinophils % 1.8 % (0.00-10.9); Hematocrit 28.9 VOL% (35.7-47.0); Hemoglobin 9.4 GM/DL (12.0-16.0); Immature Granulocytes Absolute 0.83 #; Lymphocytes # 1.1 10*3/uL (1.4-4.0); Lymphocytes % 6.7 % (21.3-54.2); Mean Corpuscular HGB Conc 32.5 GM/DL (32-36); Mean Corpuscular Hemoglobin 29 PG (27-34); Mean Corpuscular Volume 88.7 FL (87-102); Mean Platelet Volume 10.6 FL (9.6-12.0); Monocytes # 2.3 10*3/uL (0.11-0.8); Monocytes % 14.2 % (1.7-12.7); NRBC # 0.02 10*3/uL; Neutrophils # 11.9 10*3/uL (1.4-7.4); Neutrophils % 72.1 % (38.7-73.9); Red Blood Count 3.26 MC/CUMM (3.8-5.5); Red Cell Distribution Width 12.8 % (9.3-17.3); White Blood Count 16.5 T/CUMM (4-12)
[2016-10-17 07:21] LABS: Platelet Count 162 T/CUMM (130-400)
[2016-10-17 07:49] LABS: Band Neutrophils 4 % (0-10); Eosinophils 4 % (0-10); Giant Platelets Few; Hypochromasia 1+; Lymphocytes 7 % (20-55); Ovalocytes Slight; Platelet Estimate Normal; Segmented Neutrophils 76 % (50-85); Total Cells Counted 100
[2016-10-17 07:50] LABS: Microcytosis Slight
[2016-10-17] MEDS: INSULIN LISPRO 100 UNIT/ML SUBCUT SCH ×4 (07:55→21:28)
[2016-10-17] MEDS: TRAVOPROST 0.004% OPH SOLN 2.5 ML BOTTLE BOTH EYES SCH ×2 (09:20→21:28)
[2016-10-17] MEDS: PEG BOTH EYES SCH ×2 (09:21→21:27)
[2016-10-17] MEDS: ROSUVASTATIN 20 MG TABLET PO SCH (09:21)
[2016-10-17] MEDS: PROPYLENE GLYCOL BOTH EYES SCH ×2 (09:21→21:27)
[2016-10-17] MEDS: PANTOPRAZOLE 40 MG TABLET PO SCH (09:22)
[2016-10-17] MEDS: CYANOCOBALAMIN 500 MCG TABLET PO SCH (09:22)
[2016-10-17] MEDS: LEVOTHYROXINE 75 MCG TABLET PO SCH (09:22)
[2016-10-17] MEDS: ASPIRIN EC 81 MG TABLET PO SCH (09:22)
[2016-10-17] MEDS: ISOSORBIDE DINITRATE 10 MG TABLET PO SCH ×2 (09:22→21:26)
[2016-10-17] MEDS: OMEGA 3 ACID ETHYL ESTERS 1 GM CAPSULE PO SCH ×2 (09:22→21:26)
[2016-10-17] MEDS: METOPROLOL SUCCINATE XL 25 MG TABLET PO SCH (09:23)
[2016-10-17] MEDS ORDERED: VANCOMYCIN INJ 1,250 MG in SODIUM CHLORIDE 0.9% 250 ML IV SCH (10:00)
[2016-10-17] MEDS ORDERED: ONDANSETRON 4 MG/2 ML VIAL ONE (11:31)
--- NOTE | 2016-10-17 12:25 | Hospitalist Progress Note ---
Hospitalist: Subjective Interval history: Patient reports headache and neck pain have improved. She is tolerating some oral intake. She does report bowel movements. No abdominal pain. No nausea or vomiting Exam - Constitutional Vitals: Period Temp Pulse Resp BP Sys/Guajardo Pulse Ox Last 24 Hr 97.8 F-98.0 F 63-72 - 114-137/45-70 95-100 Exam: Patient is awake alert and oriented to person place in no acute distress, pale elderly female Neck is supple with good range of motion Regular rate and rhythm normal S1-S2 no obvious murmurs appreciated Clear to auscultation bilaterally with good aeration nonlabored breathing noted Abdomen is soft nontender protuberant positive bowel sounds no organomegaly or masses appreciated though difficult to assess given her body habitus Warm and well-perfused no clubbing cyanosis or edema Results - Labs CBC & BMP: 10/17/16 03:55 10/17/16 03:55 Labs: Urine culture growing Pseudomonas which is pansensitive; blood cultures from are negative to date - Impressions (1) Sepsis due to Urinary tract infection and possible aseptic meningitis- improving Status: Acute Assessment and plan: Cont IVF. Discontinue Vanc and continue meropenem for now. F/U blood cultures. CSF directogens and Cryptococcus are negative. Awaiting Viral CSF studies. Monitor labs. Current Visit: Yes (2) Recent Bimalleolar fracture of left ankle Assessment and plan: Pt s/p fracture and repair of left ankle. PT/OT Current Visit: No Qualifiers: Encounter type: initial encounter Fracture type: closed Qualified Code(s) : S82.842A - Displaced bimalleolar fracture of left lower leg, initial encounter for closed fracture (3) Diabetes mellituts Status: Chronic Assessment and plan: Accuchecks ACHS. SSI. Hemoglobin A1c in am. Current Visit: No Qualifiers: Diabetes mellitus type: type 2 Diabetes mellitus complication status: with circulatory complication Diabetes mellitus complication detail: with other circulatory complications Diabetes mellitus termite control representative insulin use: without termite control representative use Qualified Code(s): E11.59 - Type 2 diabetes mellitus with other circulatory complications (4) History of hypothyroidism Status: Chronic Current Visit: No (5) Acute renal failure-resolved with hydration Transfer to floor when bed available. D/W nurse and pt and all questions answered.
[2016-10-17] MEDS: ACETAMINOPHEN 325 MG TABLET PO PRN (14:16)
--- NOTE | 2016-10-17 16:15 | Pathology Report from [facility] ---
[facility] ACCESSION # : [id number] PATIENT NAME : Catia Soto ORDERING DR : LINDA MORFIN MD CLINICAL HX: Fever, Meningismus POST-OP DX: Same SPECIMEN INFO: Fluid,CSF - .5 ccs , clear CLASS: I CLASS COMMENTS: No increased cellularity or atypia seen. CLASS LEGEND: CLASS 0 Material inadequate for diagnosis because of (see comment) CLASS I Absence of atypical or abnormal cells CLASS II Atypical Cytology but no evidence of malignancy CLASS III Cytology suggestive of but not conclusive for malignancy CLASS IV Cytology strongly suggestive of malignancy CLASS V Cytology conclusive for malignancy COLLECTED DATE: 10/16/2016 [facility] REPORT DATE: 10/17/2016 ELECTRONICALLY SIGNED BY: Sharad Epperson M.D. 10/17/2016 - 8:58:18 MTDJosé Luis
[2016-10-17] MEDS: INSULIN GLARGINE 100 UNIT/ML SUBCUT SCH (21:25)
[2016-10-18] MEDS: MEROPENEM 1,000 MG in SODIUM CHLORIDE 0.9% 100 ML IV SCH (05:34)
--- NOTE | 2016-10-18 10:28 | Hospitalist Progress Note ---
Assessment and Plan (1) Urinary tract infection Status: Acute Assessment and plan: Infection secondary to pseudomonas aeruginosa. Pansensitive. Continue current management. Current Visit: Yes (2) Bibasilar crackles Status: Acute Assessment and plan: We will obtain chest x-ray. Previous echo appears revealed normal cardiac function. Current Visit: Yes (3) Diabetes Status: Chronic Assessment and plan: Continue current management. Current Visit: No Qualifiers: Diabetes mellitus type: type 2 Diabetes mellitus complication status: with circulatory complication Diabetes mellitus complication detail: with other circulatory complications Diabetes mellitus custodial insulin use: without terminal operator use Qualified Code(s): E11.59 - Type 2 diabetes mellitus with other circulatory complications (4) Dyslipidemia Status: Chronic Assessment and plan: Continue current management. Current Visit: No (5) History of hypothyroidism Status: Chronic Assessment and plan: Continue current management. Current Visit: No (6) Hypertension Status: Chronic Assessment and plan: Continue current management. Current Visit: No Hospitalist: Subjective Interval history: Complains of some mild SOB, no chest pain or nausea. Exam - Constitutional Vitals: Period Temp Pulse Resp BP Sys/Guaajrdo Pulse Ox Last 24 Hr 96.6 F-98.7 F 58-69 11-23 102-139/48-66 93-100 General appearance: no acute distress, over weight - Head Head exam: Present: normocephalic, atraumatic - Eye Eye exam: Present: EOMI Pupils: Present: EDWARD - ENT ENT exam: Present: normal exam - Neck Neck exam: Present: normal inspection - Respiratory Respiratory exam: Present: other (crackles bases bilaterally). Absent: rhonchi , wheezes - Cardiovascular Cardiovascular exam: Present: regular rate and rhythm. Absent: gallop, rubs, systolic murmur - GI/Abdominal GI/Abdominal exam: Present: normal bowel sounds, soft. Absent: distended, firm , guarding, tenderness, rebound - Extremities Exam Extremities exam: Present: normal inspection. Absent: calf tenderness, edema Results - Labs CBC & BMP: 10/17/16 03:55 10/17/16 03:55 Lab Results: I have reviewed the past 24 hour labs
[2016-10-18] MEDS: OMEGA 3 ACID ETHYL ESTERS 1 GM CAPSULE PO SCH (10:34)
[2016-10-18] MEDS: INSULIN LISPRO 100 UNIT/ML SUBCUT SCH ×3 (10:34→17:56)
[2016-10-18] MEDS: CYANOCOBALAMIN 500 MCG TABLET PO SCH (10:37)
[2016-10-18] MEDS: ISOSORBIDE DINITRATE 10 MG TABLET PO SCH (10:37)
[2016-10-18] MEDS: ASPIRIN EC 81 MG TABLET PO SCH (10:38)
[2016-10-18] MEDS: LEVOTHYROXINE 75 MCG TABLET PO SCH (10:38)
[2016-10-18] MEDS: METOPROLOL SUCCINATE XL 25 MG TABLET PO SCH (10:38)
[2016-10-18] MEDS: PANTOPRAZOLE 40 MG TABLET PO SCH (10:38)
[2016-10-18] MEDS: ROSUVASTATIN 20 MG TABLET PO SCH (10:38)
[2016-10-18] MEDS: PEG BOTH EYES SCH (10:43)
[2016-10-18] MEDS: PROPYLENE GLYCOL BOTH EYES SCH (10:43)
--- NOTE | 2016-10-18 11:41 | XRay Report ---
Exam: XR chest 1V portable Date: 10/18/2016 10:27 AM Indication: Shortness of breath Comparison: 10/15/2016 Technical: AP portable Findings: Right IJ catheter is present distances appear vena cava. Cardiomegaly is present. Oxygen tubing is present. ASVD is present. No pneumothorax. Impression: 1. Cardiomegaly with low volume left effusion 2. Stable position a right IJ catheter. PROCEDURE INTERPRETED AT [facility] DEPARTMENT OF RADIOLOGY Final Report Signed by: Dr. Bradley Joseph
--- NOTE | 2016-10-18 11:51 | Case Mgmt Physician Query Form ---
TB Signs and Symptoms Screening ([place]) INSTRUCTIONS: To be completed annually on residents/staff with a significant Tuberculin Skin Test (TST) upon admission/hire or a prior significant TST. To be completed on all staff at hire. Please respond to each listed symptom with an (X) in either the "YES" or "NO" box. Do you currently have any of the following symptoms: YES NO ( ) (x ) A cough If yes, is it: ( ) Productive ( ) Non- productive ( ) (x ) Hemoptysis (spitting up blood) ( ) ( x) Chest pains ( ) ( x) Weight Loss ( ) ( x) Fever ( ) (x ) Night Sweats (x ) ( ) Weakness ( ) (x ) Loss of Appetite ( ) ( x) Difficulty Breathing If you answered YES" to any of the above questions, how long have symptoms been present? Comments: weeks MTDD
--- NOTE | 2016-10-18 12:30 | Discharge Summary ---
Hospital Course - Hospital Course Hospital Course: Ms Soto was admitted for treatment of sepsis secondary to a urinary tract infection. She had a lumbar puncture performed in the ED that was unremarkable. She was managed in the intensive care unit, where she received broad spectrum IV antibiotics. Her blood pressure was otherwise stable. Her WBC was noted to be 38.8 on admission and temperature was 101.5. Her urine culture returned pseudomonas aeruginosa pansensitive. Her IV antibiotics were narrowed. At discharge, her blood cultures were negative, her WBC improved to 16.5 and was rapidly downtrending. By discharge she had met maximum benefit of hospitalization. I spent 38 minutes coordinating this discharge. - Time spent with patient Time with patient DS: Greater than 30 minutes Diagnosis - Discharge Diagnosis (1) Urinary tract infection Status: Acute (2) Bibasilar crackles Status: Acute (3) Diabetes Status: Chronic (4) Dyslipidemia Status: Chronic (5) History of hypothyroidism Status: Chronic (6) Hypertension Status: Chronic Discharge Plan - Discharge Data Disposition: Disch/Xfer to Snf Condition at Discharge: Stable Discharge Diet: advance to your usual diet Activity: resume usual activities as tolerated - Discharge Medications New Ciprofloxacin HCl [Ciprofloxacin Tab] 500 mg PO BID #14 tablet RX: Furosemide Tab [Lasix Tab] 20 mg PO DAILY #3 tablet Continue RX: [place] 3 Acid Ethyl Esters [Lovaza] 2 gm PO BID RX: Travoprost 0.004% Oph Soln [Travatan Z] 1 drop BOTH EYES DAILY RX: Propylene Glycol/Peg 400 [Systane Ultra] 1 drop BOTH EYES DAILY RX: Aspirin EC Tab 81 mg PO DAILY RX: HYDROcodone/ACETAMIN 5-325 [[place] 5-325] 1 tablet PO Q4H PRN #30 tablet PRN Reason: Pain Moderate To Severe (4-10) RX: Insulin Glargine [Lantus] 10 unit SUBCUT BEDTIME #0 unit RX: Insulin Lispro [HumaLOG] See Protocol SUBCUT ACHS unit RX: Pantoprazole Tab [Protonix Tab] 40 mg PO DAILY tablet RX: Polyethylene Glycol Powder [Miralax] 17 gm PO DAILY PRN #30 pack PRN Reason: Constipation RX: Rosuvastatin [Crestor] 20 mg PO DAILY tablet RX: Isosorbide Dinitrate 10 mg PO BID RX: Cyanocobalamin (Vitamin B-12) [Vitamin B-12] 1,000 mcg PO DAILY RX: Levothyroxine Sodium 75 mcg PO DAILY RX: Acetaminophen Tab [Tylenol Tab] 650 mg PO Q4H PRN #0 tablet PRN Reason: Fever, Headache, Mild Pain RX: Metoprolol Succinate Xl [Toprol Xl] 25 mg PO DAILY tablet RX: Zaleplon [Sonata] 5 mg PO BEDTIME PRN #0 capsule PRN Reason: Insomnia - Follow Up or Referral - Forms/Instructions Exam - Constitutional Vitals: Period Temp Pulse Resp BP Sys/Guajardo Pulse Ox Last 24 Hr 96.6 F-98.7 F 58-69 12-23 102-139/48-66 93-97 General appearance: normal weight, no acute distress - Head Head exam: Present: normal inspection, normocephalic, atraumatic - Eye Eye exam: Present: EOMI Pupils: Present: EDWARD - ENT ENT exam: Present: normal exam - Neck Neck exam: Present: normal inspection - Respiratory Respiratory exam: Present: clear to auscultation bilaterally. Absent: accessory muscle use, prolonged expiratory phase, wheezes - Cardiovascular Cardiovascular exam: Present: regular rate and rhythm. Absent: bradycardia, irregular rhythm, systolic murmur - GI/Abdominal GI/Abdominal exam: Present: normal bowel sounds. Absent: ascites, distended, hypoactive bowel sounds, tenderness - Extremities Exam Extremities exam: Present: normal inspection. Absent: normal capillary refill, full ROM Discharge Results Procedures and tests throughout hospitalization: Pending Orders 10/15/16 11:47 Cytology Request Stat 10/15/16 12:21 Blood Culture Stat 10/15/16 13:25 AFB Culture/Smears Stat Cryptococcal Antigen Stat Fungal Culture w/ Prep Stat Viral Culture, Non-Respiratory Stat 10/15/16 14:58 Herpes Simplex Virus PCR Blood Stat Labs on day of discharge: Labs from last 24 hours 10/17/16 10/17/16 10/17/16 20:19 16:23 03:55 POC Glucose 140 H 121 H Hemoglobin A1c 7.5 H Preliminary micro results at discharge 10/15/16 12:21 Blood Culture - Preliminary Blood No growth at 1 day 10/15/16 12:21 Blood Culture - Preliminary Blood No growth at 1 day DS: Provider Date of admission: 10/15/16 14:55 Primary care physician: . No PCP Attending physician on admission: Lola Choudhury MD Consults: 10/15/16 16:29 Consult to Physician [CONS] Routine Comment: Consulting Provider: 10/15/16 16:44 Consult to Case Mgmt/Social Srvs [CONS] Routine Reason for Case Mgmt/Social Srvs: Rehab Consult to Occupational Therapy [CONS] Routine Reason for Occupational Therapy: Weakness Consult to Physical Therapy [CONS] Routine Reason for Physical Therapy: Weakness Discharging clinician: Britt Garcia MD Expected date of discharge: 10/18/16
[2016-10-18] MEDS ORDERED: TUBERCULIN SKIN TEST 0.1 ML SYRINGE INTRADERM ONE (13:00)
[2016-10-18] MEDS ORDERED: MEROPENEM 1,000 MG in SODIUM CHLORIDE 0.9% 100 ML IV SCH (17:00)
[2016-10-18 17:50] VITALS: BP 139/72
[2016-10-18] MEDS ORDERED: TRAVOPROST 0.004% OPH SOLN 2.5 ML BOTTLE BOTH EYES SCH (21:00)
== END 2016-10-18 16:30 | DRG 872 ==
LOC: EDUNIT# → EDBD → N.ED 11:16 → SUATTDRO 14:55 → N.EDINP 15:32 → N.ICU 16:04 → N.2E 10-18 07:15
PROVIDERS: ADMIT Pediatrics; ATTEND Internal Medicine

== ENCOUNTER 2018-03-30 18:44 | Observation (INO) ==
[2018-03-30] MEDS ORDERED: ASPIRIN 325 MG TABLET PO STA (20:11)
[2018-03-30 20:38] LABS: Basophils % 0.3 % (0.0-0.8); Eosinophils # 0.3 10*3/uL (0.0-0.87); Eosinophils % 3.7 % (0.00-10.9); Hematocrit 39.4 VOL% (35.7-47.0); Immature Granulocytes % 0.7 %; Immature Granulocytes Absolute 0.05 #; Lymphocytes # 1.2 10*3/uL (1.4-4.0); Lymphocytes % 15.9 % (21.3-54.2); Mean Corpuscular Hemoglobin 29 PG (27-34); Mean Corpuscular Volume 87.6 FL (87-102); Mean Platelet Volume 10.2 FL (9.6-12.0); Monocytes # 1.1 10*3/uL (0.11-0.8); Monocytes % 14.7 % (1.7-12.7); Neutrophils # 4.9 10*3/uL (1.4-7.4); Neutrophils % 64.7 % (38.7-73.9); Platelet Count 86 T/CUMM (130-400); Red Cell Distribution Width 13.1 % (9.3-17.3); White Blood Count 7.6 T/CUMM (4-12)
[2018-03-30 20:58] LABS: Albumin 3.1 G/DL (3.4-5.0); Bilirubin,Total 0.4 MG/DL (0.2-1.0); Calcium 8.6 MG/DL (8.5-10.1); Potassium 4.2 MMOL/L (3.5-5.1); Total Protein 6.2 G/DL (6.4-8.3)
[2018-03-30 21:56] LABS: Platelet Estimate Decreased
[2018-03-30] MEDS ORDERED: NITROGLYCERIN SL 0.4 MG TABLET SL PRN (23:48)
[2018-03-30] MEDS ORDERED: MAGNESIUM SULF RIDER 2 GM in PREMIX 1 EACH IV PRN (23:48)
[2018-03-30] MEDS ORDERED: BISACODYL 5 MG TABLET PO PRN (23:48)
[2018-03-30] MEDS ORDERED: MORPHINE 4 MG/1 ML VIAL IV PRN (23:48)
[2018-03-30] MEDS ORDERED: MAGNESIUM SULF RIDER 4 GM in PREMIX 1 EACH IV PRN (23:48)
[2018-03-30] MEDS ORDERED: MAGNESIUM HYDROXIDE SUSP 30 ML UDCUP PO PRN (23:48)
[2018-03-30] MEDS ORDERED: ONDANSETRON 4 MG/2 ML VIAL IV PRN (23:48)
[2018-03-31] MEDS ORDERED: DEXTROSE 50% 25 GM/50 ML VIAL IV PRN (00:03)
[2018-03-31] MEDS ORDERED: GLUCAGON 1 MG VIAL IM PRN (00:03)
[2018-03-31 02:17] LABS: Basophils % 0.2 % (0.0-0.8); Eosinophils # 0.3 10*3/uL (0.0-0.87); Eosinophils % 4.3 % (0.00-10.9); Hematocrit 40.8 VOL% (35.7-47.0); Hemoglobin 13.5 GM/DL (12.0-16.0); Immature Granulocytes % 0.8 %; Immature Granulocytes Absolute 0.05 #; Lymphocytes # 1.3 10*3/uL (1.4-4.0); Mean Corpuscular HGB Conc 33.1 GM/DL (32-36); Mean Corpuscular Hemoglobin 29 PG (27-34); Mean Corpuscular Volume 86.4 FL (87-102); Mean Platelet Volume 10.4 FL (9.6-12.0); Monocytes % 16.1 % (1.7-12.7); Neutrophils # 3.7 10*3/uL (1.4-7.4); Neutrophils % 58.6 % (38.7-73.9); Platelet Count 84 T/CUMM (130-400); Red Blood Count 4.72 MC/CUMM (3.8-5.5); Red Cell Distribution Width 13.1 % (9.3-17.3); White Blood Count 6.3 T/CUMM (4-12)
[2018-03-31 02:27] LABS: INR 0.9; Partial Thromboplastin Time 27.6 SECS (0-40)
[2018-03-31 02:50] LABS: Calcium 8.9 MG/DL (8.5-10.1); Osmolality,Calculated 285.8 MOS/KG (273-304); Potassium 3.9 MMOL/L (3.5-5.1); Risk Ratio 4.78; Thyroid Stimulating Hormone 0.441 uIU/ml (0.358-3.74); VLDL CHOLESTEROL 20.2 MG/DL
[2018-03-31] MEDS ORDERED: ACETAMINOPHEN 325 MG TABLET PO PRN (03:09)
[2018-03-31] MEDS ORDERED: POLYETHYLENE GLYCOL POWDER 17 GM PACK PO PRN (03:09)
[2018-03-31] MEDS ORDERED: GABAPENTIN 100 MG CAPSULE PO PRN (03:09)
[2018-03-31 03:23] LABS: Eosinophils 1 % (0-10); Lymphocytes 17 % (20-55); Metamyelocytes 1 %; Platelet Estimate Decreased; Segmented Neutrophils 69 % (50-85); Total Cells Counted 100
[2018-03-31] MEDS ORDERED: LEVOTHYROXINE 88 MCG TABLET PO SCH (06:00)
[2018-03-31] MEDS: INSULIN LISPRO 100 UNIT/ML SUBCUT SCH ×2 (08:35→11:51)
[2018-03-31] MEDS ORDERED: EZETIMIBE 10 MG TABLET PO SCH (09:00)
[2018-03-31] MEDS ORDERED: CYANOCOBALAMIN 500 MCG TABLET PO SCH (09:00)
[2018-03-31] MEDS ORDERED: METOPROLOL SUCCINATE XL 25 MG TABLET PO SCH (09:00)
[2018-03-31] MEDS ORDERED: OMEGA 3 ACID ETHYL ESTERS 1 GM CAPSULE PO SCH (09:00)
[2018-03-31] MEDS ORDERED: ASPIRIN EC 81 MG TABLET PO SCH (09:00)
[2018-03-31] MEDS ORDERED: ISOSORBIDE DINITRATE 10 MG TABLET PO SCH (09:00)
[2018-03-31] MEDS ORDERED: NON-FORMULARY MEDICATION (Omeprazole Magnesium [Prilosec Otc] 20 MG) PO SCH (09:00)
[2018-03-31] MEDS ORDERED: PANTOPRAZOLE 40 MG TABLET PO SCH (09:00)
[2018-03-31] MEDS ORDERED: Saxagliptin Hcl [Onglyza] 5 MG PO SCH (09:00)
[2018-03-31] MEDS ORDERED: MAGNESIUM OXIDE 400 MG TABLET PO SCH (09:00)
[2018-03-31] MEDS ORDERED: LISINOPRIL 5 MG TABLET PO SCH (09:00)
[2018-03-31 11:59] VITALS: BP 126/69
[2018-03-31] MEDS ORDERED: CARBOXYMETHYLCELLULOSE 1% OPH SOLN BOTH EYES SCH (21:00)
[2018-03-31] MEDS ORDERED: TRAVOPROST 0.004% OPH SOLN 2.5 ML BOTTLE BOTH EYES SCH (21:00)
== END 2018-03-31 16:30 | disposition home or self-care (01) ==
LOC: EDUNIT# → N.EDINP 18:44 → N.ED 18:44 → SUATTDRO 23:47 → N.TELES 03-31 00:40
PROVIDERS: ADMIT Internal Medicine; ATTEND Internal Medicine

== ENCOUNTER 2018-04-01 13:16 | Inpatient (IN) ==
[2018-04-01] MEDS ORDERED: guaiFENesin/DM ER 600-30 MG TABLET PO PRN (13:31)
[2018-04-01] MEDS ORDERED: LACTULOSE 20 GM/30 ML UDCUP PO PRN (13:31)
[2018-04-01] MEDS ORDERED: DOCUSATE SODIUM 100 MG CAPSULE PO PRN (13:31)
[2018-04-01] MEDS ORDERED: MAGNESIUM SULF RIDER 2 GM in PREMIX 1 EACH IV PRN ×2 (13:31→13:37)
[2018-04-01] MEDS ORDERED: ZALEPLON 5 MG CAPSULE PO PRN (13:31)
[2018-04-01] MEDS ORDERED: MORPHINE 4 MG/1 ML VIAL IV PRN (13:31)
[2018-04-01] MEDS ORDERED: PROMETHAZINE 25 MG TABLET PO PRN (13:31)
[2018-04-01] MEDS ORDERED: ACETAMINOPHEN 325 MG TABLET PO PRN (13:31)
[2018-04-01] MEDS ORDERED: BISACODYL 5 MG TABLET PO PRN (13:31)
[2018-04-01] MEDS ORDERED: POTASSIUM CHLORIDE 20 MEQ TABLET PO PRN (13:31)
[2018-04-01] MEDS ORDERED: ONDANSETRON 4 MG/2 ML VIAL IV PRN (13:31)
[2018-04-01] MEDS ORDERED: MAGNESIUM SULF RIDER 4 GM in PREMIX 1 EACH IV PRN (13:31)
[2018-04-01] MEDS ORDERED: POTASSIUM CHLORIDE RIDER 10 MEQ in PREMIX 1 EACH IV PRN (13:37)
[2018-04-01] MEDS ORDERED: INFLUENZA VIRUS VACCINE 0.5 ML SYRINGE IM ONE (15:21)
[2018-04-01] MEDS ORDERED: NITROGLYCERIN SL 0.4 MG TABLET SL PRN (17:10)
[2018-04-01 17:11] LABS: Basophils % 0.3 % (0.0-0.8); Eosinophils # 0.3 10*3/uL (0.0-0.87); Hematocrit 44.2 VOL% (35.7-47.0); Hemoglobin 14.6 GM/DL (12.0-16.0); Immature Granulocytes % 0.8 %; Immature Granulocytes Absolute 0.07 #; Lymphocytes # 1.7 10*3/uL (1.4-4.0); Lymphocytes % 19.4 % (21.3-54.2); Mean Corpuscular Hemoglobin 29 PG (27-34); Mean Corpuscular Volume 86.5 FL (87-102); Mean Platelet Volume 11.1 FL (9.6-12.0); Monocytes # 1.3 10*3/uL (0.11-0.8); Monocytes % 14.8 % (1.7-12.7); Neutrophils # 5.3 10*3/uL (1.4-7.4); Neutrophils % 61.7 % (38.7-73.9); Red Blood Count 5.11 MC/CUMM (3.8-5.5); Red Cell Distribution Width 13.1 % (9.3-17.3); White Blood Count 8.6 T/CUMM (4-12)
[2018-04-01 17:13] LABS: Platelet Count 80 T/CUMM (130-400)
[2018-04-01 17:30] LABS: Albumin 3.2 G/DL (3.4-5.0); Bilirubin,Total 0.7 MG/DL (0.2-1.0); Calcium 8.5 MG/DL (8.5-10.1); Potassium 3.8 MMOL/L (3.5-5.1); Total Protein 6.3 G/DL (6.4-8.3)
[2018-04-01 17:31] LABS: CKMB % 8.9 %
[2018-04-01 17:38] LABS: Platelet Estimate Decreased
[2018-04-01 18:08] LABS: Troponin I 1.67 NG/ML (0.00-0.045)
[2018-04-01] MEDS ORDERED: CARBOXYMETHYLCELLULOSE 1% OPH SOLN BOTH EYES SCH (21:00)
[2018-04-01] MEDS: OMEGA 3 ACID ETHYL ESTERS 1 GM CAPSULE PO SCH (21:20)
[2018-04-01] MEDS: ISOSORBIDE DINITRATE 10 MG TABLET PO SCH (21:20)
[2018-04-01] MEDS: METOPROLOL SUCCINATE XL 25 MG TABLET PO SCH (21:20)
[2018-04-01] MEDS: TRAVOPROST 0.004% OPH SOLN 2.5 ML BOTTLE BOTH EYES SCH (21:21)
[2018-04-01] MEDS: NYSTATIN POWDER 15 GM BOTTLE TOP SCH (21:21)
[2018-04-02] MEDS: SODIUM CHLORIDE 0.9% 1,000 ML IV SCH ×3 (00:51→11:42)
[2018-04-02] MEDS: LEVOTHYROXINE 88 MCG TABLET PO SCH (06:40)
[2018-04-02] MEDS ORDERED: POTASSIUM CHLORIDE RIDER 10 MEQ in PREMIX 1 EACH IV PRN (06:45)
[2018-04-02] MEDS ORDERED: MAGNESIUM SULF RIDER 2 GM in PREMIX 1 EACH IV PRN (06:45)
[2018-04-02] MEDS ORDERED: DIAZEPAM 5 MG TABLET PO ONE (07:00)
[2018-04-02] MEDS: CARBOXYMETHYLCELLULOSE 1% OPH SOLN BOTH EYES SCH ×2 (07:09→21:50)
[2018-04-02] MEDS: ISOSORBIDE DINITRATE 10 MG TABLET PO SCH ×3 (07:28→21:48)
[2018-04-02] MEDS: ASPIRIN EC 81 MG TABLET PO SCH ×2 (07:28→08:28)
[2018-04-02] MEDS: MAGNESIUM OXIDE 400 MG TABLET PO SCH ×2 (07:29→08:29)
[2018-04-02] MEDS: LISINOPRIL 5 MG TABLET PO SCH ×2 (07:29→08:30)
[2018-04-02] MEDS: GABAPENTIN 100 MG CAPSULE PO SCH ×2 (07:29→08:30)
[2018-04-02] MEDS: CYANOCOBALAMIN 500 MCG TABLET PO SCH ×2 (07:30→08:31)
[2018-04-02] MEDS: METOPROLOL SUCCINATE XL 25 MG TABLET PO SCH ×3 (07:30→21:48)
[2018-04-02] MEDS: EZETIMIBE 10 MG TABLET PO SCH ×2 (07:30→08:31)
[2018-04-02] MEDS: PANTOPRAZOLE 40 MG TABLET PO SCH ×2 (07:30→08:30)
[2018-04-02] MEDS ORDERED: MIDAZOLAM 2 MG/2 ML VIAL ONE (08:15)
[2018-04-02] MEDS ORDERED: HEPARIN/NACL 0.9% 2 UNITS/ML 1,000 ML IV ONE (08:15)
[2018-04-02] MEDS ORDERED: LIDOCAINE 1% 20 ML VIAL ONE (08:15)
[2018-04-02] MEDS ORDERED: HYDROmorphone 2 MG/1 ML VIAL ONE (08:15)
[2018-04-02] MEDS: sitaGLIPtin 100 MG TABLET PO SCH (08:28)
[2018-04-02] MEDS: OMEGA 3 ACID ETHYL ESTERS 1 GM CAPSULE PO SCH ×2 (08:29→21:49)
[2018-04-02] MEDS: CHOLECALCIFEROL 1,000 UNIT TABLET PO SCH (08:31)
[2018-04-02] MEDS ORDERED: BIVALIRUDIN 250 MG VIAL IV ONE (08:48)
[2018-04-02] MEDS ORDERED: Biotin [Biotin] 1 MG PO SCH (09:00)
[2018-04-02] MEDS ORDERED: TICAGRELOR 90 MG TABLET ONE (09:40)
[2018-04-02] MEDS ORDERED: PRASUGREL 10 MG TABLET ONE (09:47)
[2018-04-02] MEDS ORDERED: DEXTROSE 50% 25 GM/50 ML VIAL IV PRN (09:49)
[2018-04-02] MEDS ORDERED: GLUCAGON 1 MG VIAL IM PRN (09:49)
[2018-04-02] MEDS: NYSTATIN POWDER 15 GM BOTTLE TOP SCH ×2 (11:42→21:52)
[2018-04-02] MEDS ORDERED: MAGNESIUM HYDROXIDE SUSP 30 ML UDCUP PO PRN (15:29)
[2018-04-02] MEDS ORDERED: diphenhydrAMINE CAP 25 MG CAPSULE PO PRN (15:29)
[2018-04-02] MEDS: TRAVOPROST 0.004% OPH SOLN 2.5 ML BOTTLE BOTH EYES SCH (21:50)
[2018-04-03 06:33] LABS: Basophils % 0.3 % (0.0-0.8); Eosinophils # 0.3 10*3/uL (0.0-0.87); Hematocrit 38.2 VOL% (35.7-47.0); Hemoglobin 12.6 GM/DL (12.0-16.0); Immature Granulocytes % 1.1 %; Lymphocytes # 1.3 10*3/uL (1.4-4.0); Mean Corpuscular Hemoglobin 29 PG (27-34); Mean Corpuscular Volume 86.4 FL (87-102); Mean Platelet Volume 10.4 FL (9.6-12.0); Monocytes # 1.2 10*3/uL (0.11-0.8); Monocytes % 12.7 % (1.7-12.7); Neutrophils # 6.4 10*3/uL (1.4-7.4); Neutrophils % 68.9 % (38.7-73.9); Platelet Count 71 T/CUMM (130-400); Red Blood Count 4.42 MC/CUMM (3.8-5.5); Red Cell Distribution Width 13.2 % (9.3-17.3); White Blood Count 9.3 T/CUMM (4-12)
[2018-04-03] MEDS: LEVOTHYROXINE 88 MCG TABLET PO SCH (06:50)
[2018-04-03 07:08] LABS: CKMB % 11.2 %; Calcium 8.1 MG/DL (8.5-10.1); Osmolality,Calculated 281.1 MOS/KG (273-304); Potassium 3.6 MMOL/L (3.5-5.1)
[2018-04-03 07:32] LABS: Troponin I 6.41 NG/ML (0.00-0.045)
[2018-04-03 07:36] VITALS: BP 122/60
[2018-04-03 08:19] LABS: Band Neutrophils 10 % (0-10); Eosinophils 5 % (0-10); Lymphocytes 18 % (20-55); Platelet Estimate Decreased; Segmented Neutrophils 56 % (50-85); Total Cells Counted 100
[2018-04-03 08:20] LABS: Anisocytosis 1+
[2018-04-03] MEDS ORDERED: PRASUGREL 10 MG TABLET PO SCH (09:00)
[2018-04-03] MEDS ORDERED: INFLUENZA VIRUS VACCINE 0.5 ML SYRINGE IM ONE (09:17)
[2018-04-03] MEDS: ASPIRIN EC 81 MG TABLET PO SCH (09:58)
[2018-04-03] MEDS: EZETIMIBE 10 MG TABLET PO SCH (09:58)
[2018-04-03] MEDS: MAGNESIUM OXIDE 400 MG TABLET PO SCH (09:58)
[2018-04-03] MEDS: METOPROLOL SUCCINATE XL 25 MG TABLET PO SCH (09:58)
[2018-04-03] MEDS: LISINOPRIL 5 MG TABLET PO SCH (09:58)
[2018-04-03] MEDS: PANTOPRAZOLE 40 MG TABLET PO SCH (09:58)
[2018-04-03] MEDS: CYANOCOBALAMIN 500 MCG TABLET PO SCH (09:58)
[2018-04-03] MEDS: GABAPENTIN 100 MG CAPSULE PO SCH (09:58)
[2018-04-03] MEDS: CHOLECALCIFEROL 1,000 UNIT TABLET PO SCH (09:58)
[2018-04-03] MEDS: sitaGLIPtin 100 MG TABLET PO SCH (09:58)
[2018-04-03] MEDS: OMEGA 3 ACID ETHYL ESTERS 1 GM CAPSULE PO SCH (09:58)
[2018-04-03] MEDS: ISOSORBIDE DINITRATE 10 MG TABLET PO SCH (10:07)
== END 2018-04-03 11:10 | disposition home health service (06) | DRG 247 ==
LOC: N.2W → N.TELEN 16:26
PROVIDERS: ADMIT Internal Medicine Cardiovascular Disease; ATTEND Internal Medicine Cardiovascular Disease
PROC: CLCCHCL (ICD-10-PCS; 2018-04-02 09:15)

== ENCOUNTER 2018-07-30 23:16 | Observation (INO) ==
[2018-07-31] MEDS ORDERED: ASPIRIN 325 MG TABLET PO STA (00:04)
[2018-07-31 00:12] LABS: Basophils % 0.3 % (0.0-0.8); Eosinophils # 0.4 10*3/uL (0.0-0.87); Eosinophils % 5.3 % (0.00-10.9); Hematocrit 44.4 VOL% (35.7-47.0); Hemoglobin 14.1 GM/DL (12.0-16.0); Immature Granulocytes % 0.8 %; Immature Granulocytes Absolute 0.05 #; Lymphocytes # 1.2 10*3/uL (1.4-4.0); Lymphocytes % 17.4 % (21.3-54.2); Mean Corpuscular HGB Conc 31.8 GM/DL (32-36); Mean Corpuscular Hemoglobin 28 PG (27-34); Mean Corpuscular Volume 87.1 FL (87-102); Mean Platelet Volume 9.9 FL (9.6-12.0); Neutrophils # 4.1 10*3/uL (1.4-7.4); Neutrophils % 61.2 % (38.7-73.9); Red Cell Distribution Width 13.8 % (9.3-17.3); White Blood Count 6.6 T/CUMM (4-12)
[2018-07-31 00:14] LABS: Platelet Count 81 T/CUMM (130-400)
[2018-07-31 00:15] LABS: INR 0.9; PT Patient Result 10.1 SECS
[2018-07-31 00:21] LABS: Alanine Aminotransferase 29 U/L (13-56); Albumin 3.4 G/DL (3.4-5.0); Alkaline Phosphatase 82 U/L (45-117); Aspartate Amino Transferase 23 U/L (0-37); Bilirubin,Total < 0.39 MG/DL (0.2-1.0); Blood Urea Nitrogen 21 MG/DL (7-18); Calcium 9.2 MG/DL (8.5-10.1); Glucose 158 MG/DL (74-106); Osmolality,Calculated 280.7 MOS/KG (273-304); Potassium 5.1 MMOL/L (3.5-5.1); Sodium 138 MMOL/L (136-145); Total Protein 7.4 G/DL (6.4-8.3)
[2018-07-31] MEDS ORDERED: ONDANSETRON 4 MG/2 ML VIAL IV PRN (01:38)
[2018-07-31 03:57] LABS: Platelet Estimate Decreased; Polychromasia Few
[2018-07-31 04:21] LABS: Basophils % 0.3 % (0.0-0.8); Eosinophils # 0.3 10*3/uL (0.0-0.87); Eosinophils % 4.6 % (0.00-10.9); Hematocrit 40.6 VOL% (35.7-47.0); Immature Granulocytes % 0.7 %; Immature Granulocytes Absolute 0.05 #; Lymphocytes # 1.6 10*3/uL (1.4-4.0); Lymphocytes % 23.6 % (21.3-54.2); Mean Corpuscular Hemoglobin 27 PG (27-34); Mean Corpuscular Volume 84.6 FL (87-102); Mean Platelet Volume 10.6 FL (9.6-12.0); Monocytes # 0.8 10*3/uL (0.11-0.8); Neutrophils # 4.1 10*3/uL (1.4-7.4); Neutrophils % 58.8 % (38.7-73.9); Red Cell Distribution Width 13.9 % (9.3-17.3); White Blood Count 6.9 T/CUMM (4-12)
[2018-07-31 04:23] LABS: Platelet Count 72 T/CUMM (130-400)
[2018-07-31 04:52] LABS: Bilirubin,Total 0.8 MG/DL (0.2-1.0); Calcium 8.8 MG/DL (8.5-10.1); Osmolality,Calculated 281.5 MOS/KG (273-304); Potassium 5.1 MMOL/L (3.5-5.1); Total Protein 6.3 G/DL (6.4-8.3)
[2018-07-31 05:03] LABS: Platelet Estimate Decreased
[2018-07-31] MEDS ORDERED: ASPIRIN CHEW 81 MG TABLET PO SCH (09:00)
[2018-07-31] MEDS ORDERED: GABAPENTIN 100 MG CAPSULE PO PRN (10:47)
[2018-07-31] MEDS ORDERED: NITROGLYCERIN SL 0.4 MG TABLET SL PRN (10:47)
[2018-07-31] MEDS ORDERED: EZETIMIBE 10 MG TABLET PO SCH (11:00)
[2018-07-31] MEDS ORDERED: CYANOCOBALAMIN 500 MCG TABLET PO SCH (11:00)
[2018-07-31] MEDS ORDERED: OMEGA 3 ACID ETHYL ESTERS 1 GM CAPSULE PO SCH (11:00)
[2018-07-31] MEDS ORDERED: MULTIVITAMIN (BEROCCA) TABLET PO SCH (11:00)
[2018-07-31] MEDS ORDERED: sitaGLIPtin 100 MG TABLET PO SCH (11:00)
[2018-07-31] MEDS ORDERED: PRASUGREL 10 MG TABLET PO SCH (11:00)
[2018-07-31] MEDS ORDERED: CHOLECALCIFEROL 1,000 UNIT TABLET PO SCH (11:00)
[2018-07-31] MEDS ORDERED: ASPIRIN EC 81 MG TABLET PO SCH (11:00)
[2018-07-31] MEDS ORDERED: MAGNESIUM OXIDE 400 MG TABLET PO SCH (11:00)
[2018-07-31] MEDS ORDERED: ISOSORBIDE DINITRATE 10 MG TABLET PO SCH ×2 (11:00→15:26)
[2018-07-31] MEDS ORDERED: LEVOTHYROXINE 88 MCG TABLET PO SCH (11:00)
[2018-07-31] MEDS ORDERED: ISOSORBIDE DINITRATE 20 MG TABLET PO SCH (11:36)
[2018-07-31] MEDS: POTASSIUM CHLORIDE 20 MEQ TABLET PO SCH ×2 (12:44→16:31)
[2018-07-31] MEDS: INSULIN REGULAR 100 UNIT/ML SUBCUT SCH ×2 (12:44→16:31)
[2018-07-31 15:56] VITALS: BP 149/65
[2018-07-31] MEDS ORDERED: METOPROLOL SUCCINATE XL 25 MG TABLET PO SCH (21:00)
[2018-07-31] MEDS ORDERED: POLYVINYL ALCOHOL 1.4% OPH SOLN 15 ML BOTTLE BOTH EYES SCH (21:00)
[2018-07-31] MEDS ORDERED: TRAVOPROST 0.004% OPH SOLN 2.5 ML BOTTLE BOTH EYES SCH (21:00)
[2018-08-01] MEDS ORDERED: ASPIRIN EC 81 MG TABLET PO SCH (09:00)
[2018-08-01] MEDS ORDERED: LISINOPRIL 5 MG TABLET PO SCH (09:00)
== END 2018-07-31 17:20 | disposition home or self-care (01) ==
LOC: EDBD → EDUNIT# → N.ED 23:16 → N.EDINP 23:16 → N.TELES 07-31 03:40
PROVIDERS: ADMIT Internal Medicine Interventional Cardiology; ATTEND Internal Medicine Interventional Cardiology

== ENCOUNTER 2018-10-09 10:06 | Observation (INO) ==
[2018-10-09 10:41] LABS: Basophils % 0.6 % (0.0-0.8); Eosinophils # 0.3 10*3/uL (0.0-0.87); Eosinophils % 3.9 % (0.00-10.9); Hematocrit 46.6 VOL% (35.7-47.0); Hemoglobin 14.6 GM/DL (12.0-16.0); Immature Granulocytes % 1.1 %; Immature Granulocytes Absolute 0.07 #; Lymphocytes # 1.1 10*3/uL (1.4-4.0); Lymphocytes % 17.2 % (21.3-54.2); Mean Corpuscular HGB Conc 31.3 GM/DL (32-36); Mean Corpuscular Volume 87.4 FL (87-102); Monocytes % 11.4 % (1.7-12.7); Neutrophils % 65.8 % (38.7-73.9); Platelet Count 83 T/CUMM (130-400); Red Blood Count 5.33 MC/CUMM (3.8-5.5); Red Cell Distribution Width 13.8 % (9.3-17.3); White Blood Count 6.6 T/CUMM (4-12)
[2018-10-09 10:56] LABS: Calcium 8.5 MG/DL (8.5-10.1); Osmolality,Calculated 282.5 MOS/KG (273-304)
[2018-10-09 11:03] LABS: Hypochromasia 1+; Platelet Estimate Decreased
[2018-10-09] MEDS ORDERED: ACETAMINOPHEN 325 MG TABLET PO PRN (12:08)
[2018-10-09] MEDS ORDERED: PROMETHAZINE 25 MG/1 ML VIAL IM PRN (12:08)
[2018-10-09] MEDS ORDERED: MORPHINE 4 MG/1 ML VIAL IV PRN (12:08)
[2018-10-09] MEDS ORDERED: ONDANSETRON 4 MG/2 ML VIAL IV PRN (12:08)
[2018-10-09] MEDS ORDERED: GABAPENTIN 100 MG CAPSULE PO PRN (12:15)
[2018-10-09] MEDS ORDERED: NITROGLYCERIN SL 0.4 MG TABLET SL PRN (12:15)
[2018-10-09] MEDS ORDERED: DEXTROSE 50% 25 GM/50 ML SYRINGE IV PRN (12:18)
[2018-10-09] MEDS ORDERED: GLUCAGON 1 MG VIAL IM PRN (12:18)
[2018-10-09] MEDS: PANTOPRAZOLE 40 MG TABLET PO SCH (13:38)
[2018-10-09] MEDS: ENOXAPARIN 80 MG/0.8 ML SYRINGE SUBCUT SCH (13:39)
[2018-10-09 14:07] LABS: CKMB % 8.8 %
[2018-10-09 14:10] LABS: Troponin I 1.73 NG/ML (0.00-0.045)
[2018-10-09] MEDS: INSULIN LISPRO 100 UNIT/ML SUBCUT SCH ×2 (16:03→21:09)
[2018-10-09] MEDS: NITROGLYCERIN 2% OINT 1 INCH/GM PACK TOP SCH (17:18)
[2018-10-09] MEDS: POTASSIUM CHLORIDE 20 MEQ TABLET PO SCH (17:18)
[2018-10-09 20:22] LABS: CKMB % 11.5 %
[2018-10-09 20:32] LABS: Troponin I 4.01 NG/ML (0.00-0.045)
[2018-10-09] MEDS ORDERED: ISOSORBIDE DINITRATE 10 MG TABLET PO SCH (21:00)
[2018-10-09] MEDS ORDERED: METOPROLOL SUCCINATE XL 25 MG TABLET PO SCH (21:00)
[2018-10-09] MEDS: METOPROLOL SUCCINATE XL 50 MG TABLET PO SCH (21:08)
[2018-10-09] MEDS: OMEGA 3 ACID ETHYL ESTERS 1 GM CAPSULE PO SCH (21:08)
[2018-10-09] MEDS: CARBOXYMETHYLCELLULOSE 1% OPH SOLN BOTH EYES SCH (21:09)
[2018-10-09] MEDS: TRAVOPROST 0.004% OPH SOLN 2.5 ML BOTTLE BOTH EYES SCH (21:09)
[2018-10-10] MEDS: ENOXAPARIN 80 MG/0.8 ML SYRINGE SUBCUT SCH ×2 (00:47→12:51)
[2018-10-10] MEDS: NITROGLYCERIN 2% OINT 1 INCH/GM PACK TOP SCH ×4 (00:49→17:02)
[2018-10-10 05:30] LABS: Basophils % 0.3 % (0.0-0.8); Eosinophils # 0.3 10*3/uL (0.0-0.87); Eosinophils % 4.9 % (0.00-10.9); Hematocrit 44.9 VOL% (35.7-47.0); Hemoglobin 14.7 GM/DL (12.0-16.0); Immature Granulocytes % 0.8 %; Immature Granulocytes Absolute 0.05 #; Lymphocytes # 1.8 10*3/uL (1.4-4.0); Mean Corpuscular HGB Conc 32.7 GM/DL (32-36); Mean Corpuscular Volume 85.5 FL (87-102); Mean Platelet Volume 10.4 FL (9.6-12.0); Monocytes % 14.7 % (1.7-12.7); Neutrophils % 52.3 % (38.7-73.9); Red Blood Count 5.25 MC/CUMM (3.8-5.5); Red Cell Distribution Width 13.7 % (9.3-17.3); White Blood Count 6.5 T/CUMM (4-12)
[2018-10-10 05:32] LABS: Platelet Count 79 T/CUMM (130-400)
[2018-10-10 05:49] LABS: Platelet Estimate Decreased; Polychromasia Few
[2018-10-10 05:57] LABS: Calcium 8.9 MG/DL (8.5-10.1); Osmolality,Calculated 284.1 MOS/KG (273-304)
[2018-10-10 06:01] LABS: Risk Ratio 5.09
[2018-10-10 06:03] LABS: Albumin 3.1 G/DL (3.4-5.0); Bilirubin,Total 1.1 MG/DL (0.2-1.0); Calcium 8.8 MG/DL (8.5-10.1); Osmolality,Calculated 280.4 MOS/KG (273-304); Total Protein 6.7 G/DL (6.4-8.3)
[2018-10-10] MEDS: INSULIN LISPRO 100 UNIT/ML SUBCUT SCH ×4 (07:48→22:10)
[2018-10-10 08:33] LABS: CKMB % 12.3 %; Troponin I 3.35 NG/ML (0.00-0.045)
[2018-10-10] MEDS: CHOLECALCIFEROL 1,000 UNIT TABLET PO SCH (08:45)
[2018-10-10] MEDS: PANTOPRAZOLE 40 MG TABLET PO SCH ×2 (08:45→08:46)
[2018-10-10] MEDS: EZETIMIBE 10 MG TABLET PO SCH (08:45)
[2018-10-10] MEDS: CYANOCOBALAMIN 500 MCG TABLET PO SCH (08:45)
[2018-10-10] MEDS: POTASSIUM CHLORIDE 20 MEQ TABLET PO SCH ×3 (08:45→16:32)
[2018-10-10] MEDS: ASPIRIN EC 81 MG TABLET PO SCH (08:45)
[2018-10-10] MEDS: PRASUGREL 10 MG TABLET PO SCH (08:45)
[2018-10-10] MEDS: OMEGA 3 ACID ETHYL ESTERS 1 GM CAPSULE PO SCH ×2 (08:45→21:59)
[2018-10-10] MEDS: sitaGLIPtin 100 MG TABLET PO SCH (08:45)
[2018-10-10] MEDS: MAGNESIUM OXIDE 400 MG TABLET PO SCH (08:45)
[2018-10-10] MEDS: COENZYME Q10 100 MG CAPSULE PO SCH (08:46)
[2018-10-10] MEDS: METOPROLOL SUCCINATE XL 50 MG TABLET PO SCH ×2 (08:46→21:59)
[2018-10-10] MEDS ORDERED: LEVOTHYROXINE 75 MCG TABLET PO SCH (09:00)
[2018-10-10] MEDS ORDERED: NON-FORMULARY MEDICATION (Biotin 1 MG) PO SCH (09:00)
[2018-10-10] MEDS ORDERED: DIAZEPAM 5 MG TABLET PO ONE (09:25)
[2018-10-10] MEDS ORDERED: MAGNESIUM SULF RIDER 2 GM in PREMIX 1 EACH IV PRN (09:25)
[2018-10-10] MEDS ORDERED: POTASSIUM CHLORIDE RIDER 10 MEQ in PREMIX 1 EACH IV PRN (09:25)
[2018-10-10] MEDS ORDERED: diphenhydrAMINE CAP 25 MG CAPSULE PO ONE (09:25)
[2018-10-10] MEDS: SODIUM CHLORIDE 0.9% 1,000 ML IV SCH ×2 (09:32→16:32)
[2018-10-10] MEDS ORDERED: LIDOCAINE 1% 20 ML VIAL ONE (09:52)
[2018-10-10] MEDS ORDERED: HEPARIN/NACL 0.9% 2 UNITS/ML 1,000 ML IV ONE (09:52)
[2018-10-10] MEDS ORDERED: HYDROmorphone 2 MG/1 ML VIAL ONE (10:06)
[2018-10-10] MEDS ORDERED: MIDAZOLAM 2 MG/2 ML VIAL ONE (10:06)
[2018-10-10] MEDS ORDERED: BIVALIRUDIN 250 MG VIAL IV ONE (10:49)
[2018-10-10] MEDS ORDERED: PRASUGREL 10 MG TABLET ONE (11:15)
[2018-10-10] MEDS ORDERED: GLUCAGON 1 MG VIAL IM PRN (11:28)
[2018-10-10] MEDS ORDERED: DEXTROSE 50% 25 GM/50 ML SYRINGE IV PRN (11:28)
[2018-10-10] MEDS: TRAVOPROST 0.004% OPH SOLN 2.5 ML BOTTLE BOTH EYES SCH (21:59)
[2018-10-11] MEDS: SODIUM CHLORIDE 0.9% 1,000 ML IV SCH ×2 (01:00→09:47)
[2018-10-11] MEDS: NITROGLYCERIN 2% OINT 1 INCH/GM PACK TOP SCH ×2 (01:04→08:30)
[2018-10-11] MEDS: ENOXAPARIN 80 MG/0.8 ML SYRINGE SUBCUT SCH (01:05)
[2018-10-11] MEDS: CARBOXYMETHYLCELLULOSE 1% OPH SOLN BOTH EYES SCH (04:24)
[2018-10-11 04:38] LABS: Basophils % 0.4 % (0.0-0.8); Eosinophils # 0.3 10*3/uL (0.0-0.87); Eosinophils % 3.4 % (0.00-10.9); Immature Granulocytes Absolute 0.08 #; Lymphocytes # 1.1 10*3/uL (1.4-4.0); Lymphocytes % 14.2 % (21.3-54.2); Mean Corpuscular HGB Conc 32.9 GM/DL (32-36); Mean Corpuscular Volume 85.6 FL (87-102); Mean Platelet Volume 10.9 FL (9.6-12.0); Monocytes % 13.6 % (1.7-12.7); Neutrophils % 67.4 % (38.7-73.9); Red Blood Count 4.44 MC/CUMM (3.8-5.5); Red Cell Distribution Width 13.8 % (9.3-17.3)
[2018-10-11 04:39] LABS: Hemoglobin 12.5 GM/DL (12.0-16.0); Platelet Count 71 T/CUMM (130-400)
[2018-10-11 04:46] LABS: Calcium 8.1 MG/DL (8.5-10.1); Osmolality,Calculated 281.3 MOS/KG (273-304)
[2018-10-11 04:53] LABS: CKMB % 6.8 %; Calcium 8.1 MG/DL (8.5-10.1); Osmolality,Calculated 278.4 MOS/KG (273-304)
[2018-10-11 05:01] LABS: Troponin I 2.44 NG/ML (0.00-0.045)
[2018-10-11] MEDS ORDERED: LEVOTHYROXINE 75 MCG TABLET PO SCH (06:30)
[2018-10-11] MEDS: INSULIN LISPRO 100 UNIT/ML SUBCUT SCH ×2 (08:08→12:03)
[2018-10-11 08:22] VITALS: BP 134/67
[2018-10-11] MEDS ORDERED: FUROSEMIDE 40 MG TABLET PO SCH (09:00)
[2018-10-11] MEDS ORDERED: LOSARTAN 25 MG TABLET PO SCH (09:00)
[2018-10-11] MEDS: CHOLECALCIFEROL 1,000 UNIT TABLET PO SCH (09:45)
[2018-10-11] MEDS: PANTOPRAZOLE 40 MG TABLET PO SCH ×2 (09:45→09:47)
[2018-10-11] MEDS: PRASUGREL 10 MG TABLET PO SCH (09:45)
[2018-10-11] MEDS: METOPROLOL SUCCINATE XL 50 MG TABLET PO SCH (09:45)
[2018-10-11] MEDS: OMEGA 3 ACID ETHYL ESTERS 1 GM CAPSULE PO SCH (09:45)
[2018-10-11] MEDS: EZETIMIBE 10 MG TABLET PO SCH (09:45)
[2018-10-11] MEDS: POTASSIUM CHLORIDE 20 MEQ TABLET PO SCH ×2 (09:46→12:03)
[2018-10-11] MEDS: COENZYME Q10 100 MG CAPSULE PO SCH (09:46)
[2018-10-11] MEDS: ASPIRIN EC 81 MG TABLET PO SCH (09:46)
[2018-10-11] MEDS: CYANOCOBALAMIN 500 MCG TABLET PO SCH (09:46)
[2018-10-11] MEDS: sitaGLIPtin 100 MG TABLET PO SCH (09:46)
[2018-10-11] MEDS: MAGNESIUM OXIDE 400 MG TABLET PO SCH (09:47)
== END 2018-10-11 12:05 | disposition home health service (06) ==
LOC: N.EDINP 10:06 → EDBD 10:06 → EDUNIT# 10:06 → N.ED 10:06 → SUATTDRO 12:08 → N.TELEN 12:28
PROVIDERS: ADMIT Internal Medicine Cardiovascular Disease; ATTEND Family Medicine
PROC: CLCCHCL (ICD-10-PCS; 2018-10-10 10:45)